=== PATIENT | male | born 1990 | race African-American/Black ===

== ENCOUNTER 2019-03-20 00:37 | Emergency (ER) | payer SELFPAY ==
[2019-03-20 01:18] LABS: Bacteria/HPF None Seen HPF (None Seen); Bilirubin Negative (Negative); Blood, Urine Negative (Negative); Clarity Clear (Clear); Glucose, Urine (Dipstick) Normal (Negative); Leukocyte 250 Leu/uL (Negative); Nitrite Negative (Negative); Protein, Urine (Dipstick) 30 mg/dL (Neg-Trace); Squamous Epithelial 0-3 HPF (0-3); Urobilinogen 3 mg/dL (Less than 2); WBC/HPF Greater than 50 HPF (0-3)
[2019-03-20] MEDS ORDERED: Azithromycin 250 MG TAB ONE (02:06)
[2019-03-20] MEDS ORDERED: cefTRIAXone\\ROCEPHIN 250 MG VIAL ONE (02:06)
[2019-03-20] MEDS ORDERED: Sterile Water 10 ML ONE (02:06)
== END 2019-03-20 02:15 | disposition home or self-care (01) ==
LOC: ERS 00:37
DX: R30.0 Dysuria (principal); R36.9 Urethral discharge, unspecified
CPT/HCPCS: 81003; 81015; 96372; 99283; J0696

== ENCOUNTER 2019-03-25 03:12 | Emergency (ER) | payer SELFPAY ==
[2019-03-25] MEDS ORDERED: Lidocaine 1% PF 5 ML VIAL ONE (04:06)
[2019-03-25] MEDS ORDERED: cefTRIAXone\\ROCEPHIN 250 MG VIAL ONE (04:06)
[2019-03-25] MEDS ORDERED: Azithromycin 250 MG TAB ONE (04:06)
[2019-03-25 04:12] LABS: Bacteria/HPF None Seen HPF (None Seen); Bilirubin Negative (Negative); Blood, Urine Negative (Negative); Clarity Clear (Clear); Glucose, Urine (Dipstick) Normal (Negative); Leukocyte 500 Leu/uL (Negative); Nitrite Negative (Negative); Protein, Urine (Dipstick) Negative (Neg-Trace); RBC/HPF 0-3 HPF (0-3); Squamous Epithelial None Seen HPF (0-3); Urobilinogen Normal mg/dL (Less than 2); WBC/HPF Greater than 50 HPF (0-3)
[2019-03-26 18:57] LABS: Chlam.trachomatis by PCR,Urine Not Detected (NotDetected)
== END 2019-03-25 04:35 | disposition home or self-care (01) ==
LOC: ERS 03:12
DX: R36.9 Urethral discharge, unspecified (principal)
CPT/HCPCS: 81003; 81015; 87491; 87591; 96374; J0696; J2001

== ENCOUNTER 2019-04-10 16:01 | Emergency (ER) | payer SELFPAY ==
[2019-04-10 17:00] LABS: Bacteria/HPF None Seen HPF (None Seen); Bilirubin Negative (Negative); Blood, Urine Negative (Negative); Clarity Clear (Clear); Glucose, Urine (Dipstick) Normal (Negative); Leukocyte 25 Leu/uL (Negative); Nitrite Negative (Negative); Protein, Urine (Dipstick) Negative (Neg-Trace); RBC/HPF 0-3 HPF (0-3); Squamous Epithelial 0-3 HPF (0-3); Urobilinogen Normal mg/dL (Less than 2)
[2019-04-11 21:40] LABS: Chlam.trachomatis by PCR,Urine Not Detected (NotDetected)
== END 2019-04-10 17:35 | disposition home or self-care (01) ==
LOC: ERS 16:01
DX: N34.2 Other urethritis (principal)
CPT/HCPCS: 81003; 81015; 87086; 87491; 87591; 99283

== ENCOUNTER 2021-06-28 23:58 | Emergency (ER) | payer SELFPAY ==
[2021-06-29 01:17] LABS: Bilirubin Negative (Negative); Blood, Urine Negative (Negative); Clarity Clear (Clear); Glucose, Urine (Dipstick) Normal (Negative); Ketone, Urine Negative (Negative); Leukocyte Negative Leu/uL (Negative); Nitrite Negative (Negative); Protein, Urine (Dipstick) 10 mg/dL (Neg-Trace); Specific Gravity, Urine 1.034 (1.002-1.036); Urobilinogen Normal mg/dL (Less than 2)
[2021-06-29] MEDS ORDERED: cefTRIAXone\\ROCEPHIN 500 MG VIAL ONE (01:47)
[2021-06-29] MEDS ORDERED: Lidocaine 1% PF 5 ML VIAL ONE (01:47)
[2021-07-02 02:56] LABS: Chlam.trachomatis by PCR,Urine Not Detected (NotDetected)
== END 2021-06-29 01:53 | disposition home or self-care (01) ==
LOC: ERS 23:58
DX: N34.2 Other urethritis (principal); F17.290 Nicotine dependence, other tobacco product, uncomplicated
CPT/HCPCS: 81003; 87491; 87591; 96372; 99283; J0696

== ENCOUNTER 2022-06-03 14:56 | Emergency (ER) | payer SELFPAY ==
[2022-06-03] MEDS ORDERED: Azithromycin 250 MG TAB ONE (16:28)
[2022-06-03] MEDS ORDERED: Lidocaine 1% PF 5 ML VIAL ONE (16:28)
[2022-06-03] MEDS ORDERED: metroNIDAZOLE 250 MG TAB ONE (16:28)
[2022-06-03] MEDS ORDERED: cefTRIAXone\\ROCEPHIN 500 MG VIAL ONE (16:28)
== END 2022-06-03 16:43 | disposition home or self-care (01) ==
LOC: ERS 14:56
DX: N34.2 Other urethritis (principal); A64 Unspecified sexually transmitted disease; F17.290 Nicotine dependence, other tobacco product, uncomplicated
CPT/HCPCS: 96372; 99283; J0696

== ENCOUNTER 2022-08-15 18:42 | Emergency (ER) | payer SELFPAY ==
[2022-08-15] MEDS ORDERED: Lidocaine 1% PF 5 ML VIAL ONE (19:43)
[2022-08-15] MEDS ORDERED: cefTRIAXone\\ROCEPHIN 500 MG VIAL ONE (19:43)
[2022-08-15] MEDS ORDERED: Azithromycin 250 MG TAB ONE (19:44)
== END 2022-08-15 20:28 | disposition home or self-care (01) ==
LOC: ERS 18:42
DX: N34.1 Nonspecific urethritis (principal); F17.290 Nicotine dependence, other tobacco product, uncomplicated
CPT/HCPCS: 96372; 99283; J0696

== ENCOUNTER 2023-03-26 00:19 | Emergency (ER) | payer SELFPAY ==
[2023-03-26] MEDS ORDERED: cefTRIAXone (ROCEPHIN) 500 MG VIAL ONE (03:01)
[2023-03-26] MEDS ORDERED: Lidocaine 1% MPF 2 ML VIAL ONE (03:01)
== END 2023-03-26 03:40 | disposition home or self-care (01) ==
LOC: ERS 00:19
DX: A64 Unspecified sexually transmitted disease (principal); F17.290 Nicotine dependence, other tobacco product, uncomplicated
CPT/HCPCS: 96372; 99283; J0696

== ENCOUNTER 2023-05-28 18:23 | Emergency (ER) | payer SELFPAY ==
[2023-05-28 19:10] LABS: Amphetamine Not Detected (NotDetected); Barbiturates Screen Not Detected (NotDetected); Benzodiazepine Screen Detected (NotDetected); Cocaine Metabolite Screen Not Detected (NotDetected); Methadone Not Detected (NotDetected); Methamphetamine Not Detected (NotDetected); Opiate Screen Not Detected (NotDetected); Oxycodone Screen Not Detected (NotDetected); Phencyclidine (PCP) Not Detected (NotDetected); THC/Cannabinoid Screen Not Detected (NotDetected); Tricyclic Screen Not Detected (NotDetected)
[2023-05-28 19:25] LABS: #Eosinphils 0.2 thou/uL (0.0-0.7); #Monocytes 0.6 thou/uL (0.11-0.59); #Neutrophils 6.6 thou/uL (1.40-6.50); %Basophils 0.3 % (0.0-1.0); %Eosinophils 1.7 % (0.0-10.0); %Lymphocytes 19.4 % (21.0-51.0); %Monocytes 6.7 % (0.0-10.0); %Neutrophils 70.9 % (42.0-75.0); Hematocrit 41.4 % (42.0-52.0); Hemoglobin 13.3 g/dL (14.0-18.0); Mean Corpuscular HGB CONC 32.1 g/dL (32.0-36.0); Mean Corpuscular Hemoglobin 27.8 pg (27.0-31.0); Mean Corpuscular Volume 86.6 fl (78.0-98.0); Mean Platelet Volume 9.9 fL (7.4-10.4); Platelet Count 267 10x3/uL (130-400); RBC Distribution Width 13.4 % (11.5-14.5); Red Blood Cell (RBC) Count 4.78 mill/uL (4.70-6.10); White Blood Cell (WBC) Count 9.3 10x3/uL (4.8-10.8)
[2023-05-28 20:41] LABS: Albumin 4.6 g/dL (3.5-5.0)
[2023-05-28 20:42] LABS: Chloride 103 mmol/L (98-107); Potassium 4.2 mmol/L (3.5-5.1); Sodium 139 mmol/L (136-145)
[2023-05-28 20:43] LABS: Calcium 9.3 mg/dL (7.8-10.44); Glucose 102 mg/dL (70-105)
[2023-05-28 20:44] LABS: Globulin 2.9 g/dL (2.4-3.5); Protein, Total 7.5 g/dL (6.0-8.3)
[2023-05-28 20:45] LABS: Anion Gap 15 mmol/L (10-20); Bilirubin, Total 0.4 mg/dL (0.2-1.2); Carbon Dioxide 25 mmol/L (22-29)
[2023-05-28 20:46] LABS: Alkaline Phosphatase 58 U/L (40-110)
[2023-05-28 20:47] LABS: Alcohol Less than 10.0 mg/dL (Less than 10); Calc. Creatinine Clearance 0 mL/min (70-130); Estimated GFR 104
[2023-05-28 20:48] LABS: BUN (Urea Nitrogen) 9 mg/dL (8.9-20.6)
[2023-05-28 20:49] LABS: ALT (SGPT) 12 U/L (8-55); AST (SGOT) 26 U/L (5-34); Salicylate Less than 8.0 mg/dL (15.0-30.0)
[2023-05-28 20:50] LABS: Acetaminophen Less than 10 mcg/mL (10.0-30.0)
[2023-05-28] MEDS ORDERED: Ondansetron ODT 4 MG TAB ONE (22:04)
[2023-05-29 09:55] LABS: Chlam.trachomatis by PCR,Urine DETECTED (NotDetected); GC N.gonorrhoeae PCR,UrineVOID Not Detected (NotDetected)
== END 2023-05-28 22:03 | disposition home or self-care (01) ==
LOC: ERS 18:23
DX: F19.10 Other psychoactive substance abuse, uncomplicated (principal); F17.290 Nicotine dependence, other tobacco product, uncomplicated
CPT/HCPCS: 70450; 72125; 80053; 80306; 80307; 85025; 87491; 87591; Q0162

== ENCOUNTER 2023-05-29 07:07 | Inpatient (IN) | payer SELFPAY, BC ==
[2023-05-29] MEDS ORDERED: NOREPINEPHRINE 8 MG/250 ML-D5W 250 ML ONE (07:11)
[2023-05-29] MEDS ORDERED: EPINEPHrine 1 MG/10 ML Abboject SYRINGE ONE (07:31)
[2023-05-29] MEDS ORDERED: EPINEPHrine 1 MG/ML VIAL ONE (07:33)
[2023-05-29 07:36] LABS: Actual Bicarbonate (HCO3a) 21.4 mEq/L (22-28); Analyzer IN Cardio ER; Carboxyhemoglobin (COHb) 0.3 gm% (0.0-3.0); Hematocrit-ABG 34 % (42.0-52.0); Hemoglobin (Hb) 11.7 g/dL (14.0-18.0); Potassium - ABG Lab 4.01 mmol/L (3.70-5.30)
[2023-05-29 07:40] LABS: Bilirubin Negative (Negative); Blood, Urine Large (Negative); Glucose, Urine (Dipstick) Negative (Negative); Ketone, Urine Negative (Negative); Leukocyte Negative (Negative); Nitrite Negative (Negative); Protein, Urine (Dipstick) 30 mg/dL (Neg-Trace); Specific Gravity, Urine 1.025 (1.005-1.030); Urobilinogen 0.2 mg/dL (Less than 2)
[2023-05-29 07:40] LABS: pH, Arterial 7.193 (7.35-7.45)
[2023-05-29 07:41] LABS: O2 Tension (PaO2), arterial 57.3 mmHg (80.0-100.0); Puncture Site Right Radial
[2023-05-29 07:41] LABS: Hematocrit 35.7 % (42.0-52.0); Hemoglobin 10.9 g/dL (14.0-18.0); Mean Corpuscular HGB CONC 30.5 g/dL (32.0-36.0); Mean Corpuscular Hemoglobin 27.5 pg (27.0-31.0); Mean Platelet Volume 9.7 fL (7.4-10.4); Platelet Count 174 10x3/uL (130-400); RBC Distribution Width 13.7 % (11.5-14.5); Red Blood Cell (RBC) Count 3.96 mill/uL (4.70-6.10); White Blood Cell (WBC) Count 7.8 10x3/uL (4.8-10.8)
[2023-05-29 07:44] LABS: Acetaminophen Less than 10 mcg/mL (10.0-30.0); Alcohol Less than 10.0 mg/dL (Less than 10); Delete Auto Diff?? YES; Manual Diff?? YES; Mean Corpuscular Volume 90.2 fl (78.0-98.0); Salicylate Less than 8.0 mg/dL (15.0-30.0)
[2023-05-29 07:45] LABS: Critical Call Chem-Lactate ERS.JAN AT 0742
[2023-05-29] MEDS ORDERED: Fentanyl CADD 100 ML IV SCH ×2 (07:45→12:15)
[2023-05-29 07:48] LABS: Clarity Clear (Clear)
[2023-05-29 07:50] LABS: Bacteria/HPF None Seen HPF (None Seen); CAUTI Indications for Culture Alt mental st,lethar; Squamous Epithelial 0-3 HPF (0-3); WBC/HPF 0-3 HPF (0-3)
[2023-05-29 07:51] LABS: Urine Culture Reflex No No
[2023-05-29 07:55] LABS: ALT (SGPT) 456 U/L (8-55); AST (SGOT) 361 U/L (5-34); Albumin 3.2 g/dL (3.5-5.0); Alkaline Phosphatase 51 U/L (40-110); Anion Gap 15 mmol/L (10-20); BUN (Urea Nitrogen) 14 mg/dL (8.9-20.6); Bilirubin, Total 0.5 mg/dL (0.2-1.2); Calc. Creatinine Clearance 0 mL/min (70-130); Calcium 7.7 mg/dL (7.8-10.44); Carbon Dioxide 23 mmol/L (22-29); Chloride 107 mmol/L (98-107); Estimated GFR 39; Globulin 1.5 g/dL (2.4-3.5); Glucose 89 mg/dL (70-105); Potassium 3.9 mmol/L (3.5-5.1); Protein, Total 4.7 g/dL (6.0-8.3); Sodium 141 mmol/L (136-145)
[2023-05-29 08:05] LABS: Band 26 % (5-11); CellaVision Operator ID lab.dlt; Hypochromia SLIGHT = 6-15 cells HPF (0-5); Lymphocytes 19 % (21-51); Monocytes 13 % (0-10); Neutrophil 42 % (42-75); Nucleated RBC (Manual Ct) 7 % (0); Ovalocytes SLIGHT = 2-5 cells HPF (0-1); Platelet Adequacy Comment Platelets Normal; Polychromasia SLIGHT = 2-3 cells HPF (0-2); Total Cell Count 105
[2023-05-29 08:13] LABS: Actual Bicarbonate (HCO3v) 22.3 mEq/L (22-28); Analyzer IN Cardio ER; Base Excess -8.4 mEq/L (-2.0 to +3.0); Calcium, Ionized (venous) 1.11 mmol/L (1.16-1.32); Chloride (VBG) 103 mmol/L (98-106); Hematocrit-VBG 36 % (42.0-52.0); Hemoglobin (Hb) 12.1 g/dL (13.2-17.3); Potassium (VBG) 4.05 mmol/L (3.70-5.30); Sodium 138 mmol/L (133-146)
[2023-05-29] MEDS ORDERED: Sodium Bicarb 50 MEQ/50 ML VIAL ONE (08:15)
[2023-05-29 08:18] LABS: pH (venous) 7.095 (7.32-7.43)
[2023-05-29] MEDS ORDERED: methylPREDNISolone Sod Succ/PF 125 MG/2 ML VIAL ONE (08:54)
[2023-05-29] MEDS ORDERED: metroNIDAZOLE 500 MG (100 mL) BAG ONE (08:54)
[2023-05-29] MEDS ORDERED: LevoFLOXacin 750 mg/D5W 150 ml Premix Bag ONE (08:55)
[2023-05-29] MEDS ORDERED: CALCIUM GLUC 1 GM (50 ML) BAG ONE (09:07)
[2023-05-29] MEDS ORDERED: Magnesium 2 GM/50 ML BAG (IN WATER) ONE (09:09)
[2023-05-29 09:24] LABS: Amphetamine Not Detected (NotDetected); Barbiturates Screen Not Detected (NotDetected); Benzodiazepine Screen Detected (NotDetected); Cocaine Metabolite Screen Not Detected (NotDetected); Methadone Not Detected (NotDetected); Methamphetamine Not Detected (NotDetected); Opiate Screen Not Detected (NotDetected); Oxycodone Screen Not Detected (NotDetected); Phencyclidine (PCP) Not Detected (NotDetected); THC/Cannabinoid Screen Detected (NotDetected); Tricyclic Screen Not Detected (NotDetected)
[2023-05-29] MEDS ORDERED: Ondansetron PF 4 MG/2 ML Vial IVP PRN (09:43)
[2023-05-29] MEDS ORDERED: DEXTROSE 5% IV SCH (10:00)
[2023-05-29] MEDS ORDERED: SODIUM BICARBONATE IV SCH (10:00)
[2023-05-29] MEDS ORDERED: Piperacillin/Tazobactam 3.375 GM in Sodium Chloride 0.9% 100 ML IVPB SCH ×2 (10:00→13:45)
[2023-05-29] MEDS ORDERED: Sodium Chloride 0.9% 1,000 ML IV SCH (10:00)
[2023-05-29] MEDS ORDERED: WATER IV SCH (10:00)
[2023-05-29] MEDS ORDERED: Vasopressin 20 UNITS in Sodium Chloride 0.9% 50 ML IV SCH (10:15)
[2023-05-29 10:37] LABS: Lactic Acid 9.7 mmol/L (0.5-2.2)
[2023-05-29] MEDS ORDERED: Sodium Bicarb 50 MEQ/50 ML Abboject 8.4% SYRINGE ONE (10:40)
[2023-05-29 10:53] LABS: HBCM Index 0.09 S/CO (0-0.79); HBSAg Index 0.24 S/CO (0-0.99); HIV (1/2) Antibody/Antigen Non-Reactive (NonReactive); HIV 1/2 INDEX 0.39 S/CO (<1.00); Hep A IgM AB Non-Reactive S/CO (NonReactive); Hep A IgM S/CO 0.16 S/CO (0-0.79); Hep B Surf Ag Non-Reactive S/CO (NonReactive); Hep C IgG Ab Non-Reactive S/CO (NonReactive); Hep C Index 0.09 S/CO (0-0.79); Hepatitis B Core IgM Abs Non-Reactive S/CO (NonReactive)
[2023-05-29] MEDS ORDERED: Sodium Bicarb 50 MEQ/50 ML Abboject 8.4% SYRINGE IVP SCH (11:00)
[2023-05-29] MEDS: Vasopressin 20 UNITS, Admixture Fee 1 EACH in Sodium Chloride 0.9% 50 ML IV PRN ×2 (11:09→16:39)
[2023-05-29] MEDS ORDERED: Ventilator Sedation Protocol 1 EACH FS SCH (11:15)
[2023-05-29] MEDS ORDERED: Electrolyte Replacement Protocol 1 EACH FS PRN (11:15)
[2023-05-29] MEDS ORDERED: Lorazepam 2 MG/ML VIAL SLOW IVP PRN ×2 (11:18→12:15)
[2023-05-29] MEDS: Vancomycin 1.5 GM in Sodium Chloride 0.9% 250 ML 300 ML IVPB SCH ×2 (11:39→23:23)
[2023-05-29] MEDS ORDERED: methylPREDNISolone Sod Succ/PF 125 MG/2 ML VIAL IVP SCH (12:00)
[2023-05-29] MEDS ORDERED: Propofol BOLUS 1,000 MG/100 ML VIAL IV PRN (12:15)
[2023-05-29] MEDS ORDERED: Fentanyl BOLUS 250 ML IVPB PRN (12:15)
[2023-05-29] MEDS ORDERED: DISCONTINUE PREVIOUS NARCOTIC PAIN MEDICATIONS AND BENZODIAZEPINES FS SCH (12:15)
[2023-05-29] MEDS ORDERED: Morphine 2 MG/ML VIAL SLOW IVP PRN (12:15)
[2023-05-29 13:19] LABS: Base Excess -12.9 mEq/L (-2.0 to +3.0); Chloride (VBG) 100 mmol/L (98-106); Hematocrit-VBG 40 % (42.0-52.0); Hemoglobin (Hb) 13.7 g/dL (13.2-17.3); Potassium (VBG) 4.82 mmol/L (3.70-5.30); Sodium 137 mmol/L (133-146)
[2023-05-29 13:21] LABS: Hemoglobin 12.7 g/dL (14.0-18.0); Mean Corpuscular Hemoglobin 27.9 pg (27.0-31.0); Mean Corpuscular Volume 89.9 fl (78.0-98.0); Mean Platelet Volume 9.7 fL (7.4-10.4); RBC Distribution Width 13.8 % (11.5-14.5); Red Blood Cell (RBC) Count 4.56 mill/uL (4.70-6.10); White Blood Cell (WBC) Count 12.4 10x3/uL (4.8-10.8)
[2023-05-29 13:21] LABS: Actual Bicarbonate (HCO3v) 14.7 mEq/L (22-28); pH (venous) 7.188 (7.32-7.43)
[2023-05-29] MEDS: methylPREDNISolone Sod Succ/PF 125 MG/2 ML VIAL IVP SCH ×2 (13:28→18:41)
[2023-05-29 13:29] LABS: Delete Auto Diff?? YES; Manual Diff?? YES; Platelet Count 132 10x3/uL (130-400)
[2023-05-29 13:58] LABS: Band 30 % (5-11); CellaVision Operator ID LAB.MJL; Dohle Bodies SLIGHT; Large Platelets 2.8 % (0-5); Lymphocytes 14 % (21-51); Metamyelocyte 14 % (0-0); Monocytes 2 % (0-10); Myelocyte 4 % (0-0); Neutrophil 36 % (42-75); Nucleated RBC (Manual Ct) 2 % (0); Ovalocytes SLIGHT = 2-5 cells HPF (0-1); Platelet Adequacy Comment Platelets Normal; Polychromasia SLIGHT = 2-3 cells HPF (0-2); Total Cell Count 106; Vacuoles SLIGHT
[2023-05-29] MEDS ORDERED: Iopamidol-370 76% 500 ML MDV (1 ML CHARGE) ONE (13:59)
[2023-05-29] MEDS: Piperacillin/Tazobactam 3.375 GM in Sodium Chloride 0.9% 100 ML IVPB SCH ×2 (15:00→22:00)
[2023-05-29] MEDS: NOREPINEPHRINE 8 MG/250 ML-D5W 250 ML IVPB SCH ×2 (15:27→22:02)
[2023-05-29] MEDS: Budesonide 0.5 MG/2 ML NEB INH SCH (18:21)
[2023-05-29 18:28] LABS: ALT (SGPT) 1551 U/L (8-55); AST (SGOT) 1778 U/L (5-34); Albumin 3.6 g/dL (3.5-5.0); Alkaline Phosphatase 50 U/L (40-110); Anion Gap 25 mmol/L (10-20); BUN (Urea Nitrogen) 18 mg/dL (8.9-20.6); CK (CPK) 2915 U/L (30-200); Calc. Creatinine Clearance 74 mL/min (70-130); Calcium 7.7 mg/dL (7.8-10.44); Carbon Dioxide 13 mmol/L (22-29); Chloride 103 mmol/L (98-107); Estimated GFR 42; Globulin 2.1 g/dL (2.4-3.5); Glucose 250 mg/dL (70-105); Potassium 5.8 mmol/L (3.5-5.1); Protein, Total 5.7 g/dL (6.0-8.3); Sodium 135 mmol/L (136-145)
[2023-05-29] MEDS ORDERED: HumaLOG 300 UNITS/3 ML VIAL SC PRN (19:07)
[2023-05-29] MEDS ORDERED: Glucagon 1 MG/ML KIT IM PRN (19:07)
[2023-05-29] MEDS ORDERED: Dextrose 50% Abboject 50 ML SYRINGE SLOW IVP PRN (19:07)
[2023-05-29] MEDS ORDERED: Dextrose 5% in Water 1,000 ML IV PRN (19:07)
[2023-05-29] MEDS: DOBUTamine 500 mg/250 ml 500 MG in Premix 1 BAG IVPB SCH (20:46)
[2023-05-29] MEDS ORDERED: Famotidine/PF 20 mg/2ml Vial SLOW IVP SCH (21:00)
[2023-05-29] MEDS ORDERED: Furosemide 40 MG (4 mL) VIAL ONE (22:13)
[2023-05-29] MEDS ORDERED: Furosemide 40 MG (4 mL) VIAL SLOW IVP SCH (22:30)
[2023-05-29] MEDS: Propofol 1,000 MG/100 ML VIAL IV PRN (23:23)
[2023-05-29] MEDS: methylPREDNISolone Sod Succ 40 MG VIAL IVP SCH (23:34)
[2023-05-30] MEDS: Piperacillin/Tazobactam 3.375 GM in Sodium Chloride 0.9% 100 ML IVPB SCH ×3 (05:09→22:07)
[2023-05-30] MEDS: methylPREDNISolone Sod Succ 40 MG VIAL IVP SCH ×3 (05:09→18:20)
[2023-05-30 05:41] LABS: Hematocrit 39.2 % (42.0-52.0); Hemoglobin 13.3 g/dL (14.0-18.0); Mean Corpuscular HGB CONC 33.9 g/dL (32.0-36.0); Mean Corpuscular Hemoglobin 27.6 pg (27.0-31.0); Mean Platelet Volume 10.8 fL (7.4-10.4); Platelet Count 156 10x3/uL (130-400); RBC Distribution Width 13.3 % (11.5-14.5); Red Blood Cell (RBC) Count 4.82 mill/uL (4.70-6.10)
[2023-05-30 05:48] LABS: Delete Auto Diff?? YES; Manual Diff?? YES; Mean Corpuscular Volume 81.3 fl (78.0-98.0)
[2023-05-30 06:15] LABS: ALT (SGPT) 2768 U/L (8-55); AST (SGOT) 2979 U/L (5-34); Albumin 3.8 g/dL (3.5-5.0); Alkaline Phosphatase 47 U/L (40-110); Anion Gap 18 mmol/L (10-20); BUN (Urea Nitrogen) 25 mg/dL (8.9-20.6); Bilirubin, Total 1.6 mg/dL (0.2-1.2); CK (CPK) 3948 U/L (30-200); Calc. Creatinine Clearance 57 mL/min (70-130); Calcium 8.8 mg/dL (7.8-10.44); Carbon Dioxide 24 mmol/L (22-29); Chloride 101 mmol/L (98-107); Estimated GFR 43; Globulin 2.2 g/dL (2.4-3.5); Glucose 96 mg/dL (70-105); Potassium 4.1 mmol/L (3.5-5.1); Sodium 139 mmol/L (136-145)
[2023-05-30 06:33] LABS: Band 46 % (5-11); CellaVision Operator ID LAB.CLH1; Hypochromia SLIGHT = 6-15 cells HPF (0-5); Lymphocytes 7 % (21-51); Macrocytosis SLIGHT = 6-15 cells HPF (0-5); Metamyelocyte 1 % (0-0); Monocytes 1 % (0-10); Neutrophil 45 % (42-75); Platelet Adequacy Comment Platelets Normal; Total Cell Count 100
[2023-05-30] MEDS: Budesonide 0.5 MG/2 ML NEB INH SCH ×2 (06:37→17:52)
[2023-05-30 08:04] LABS: Lactic Acid 4.4 mmol/L (0.5-2.2)
[2023-05-30] MEDS: hydrALAZINE 25 MG TAB PER TUBE SCH ×3 (08:59→22:09)
[2023-05-30] MEDS: Pantoprazole 40 MG VIAL IVP SCH (09:00)
[2023-05-30] MEDS: Isosorbide Dinitrate 5 MG TAB PER TUBE SCH ×3 (09:19→22:08)
[2023-05-30 09:39] LABS: Chlam.trachomatis by PCR,Urine DETECTED (NotDetected); GC N.gonorrhoeae PCR,UrineVOID Not Detected (NotDetected)
[2023-05-30] MEDS: Propofol 1,000 MG/100 ML VIAL IV PRN (09:47)
[2023-05-30] MEDS: DOBUTamine 500 mg/250 ml 500 MG in Premix 1 BAG IVPB SCH (10:24)
[2023-05-30] MEDS: Vancomycin 1.5 GM in Sodium Chloride 0.9% 250 ML 300 ML IVPB SCH (10:30)
[2023-05-30] MEDS ORDERED: Furosemide 40 MG (4 mL) VIAL SLOW IVP SCH (12:00)
[2023-05-30 12:03] LABS: Actual Bicarbonate (HCO3a) 23.4 mEq/L (22-28); Base Excess (BEa) 2.1 mEq/L (-2.0 to +3.0); CO2 Tension 27.6 mmHg (35.0-45.0); Calcium, Ionized (arterial) 1.06 mmol/L (1.12-1.30); Carboxyhemoglobin (COHb) 0.3 gm% (0.0-3.0); Hematocrit-ABG 40 % (42.0-52.0); Hemoglobin (Hb) 13.6 g/dL (14.0-18.0); O2 Tension (PaO2), arterial 153.3 mmHg (80.0-100.0); Potassium - ABG Lab 4.11 mmol/L (3.70-5.30); pH, Arterial 7.547 (7.35-7.45)
[2023-05-30 12:06] LABS: Puncture Site LRA
[2023-05-30 12:15] LABS: Lactic Acid 3.9 mmol/L (0.5-2.2)
[2023-05-30 12:48] LABS: Syphilis Antibody Nonreactive (Nonreactive); Syphilis Antibody Index 0.03 S/CO (<1.00 Non-Reactive)
[2023-05-30 22:23] LABS: Vancomycin, Trough 18.2 ug/mL
[2023-05-31] MEDS: Vancomycin 1.5 GM in Sodium Chloride 0.9% 250 ML 300 ML IVPB SCH ×3 (00:49→23:47)
[2023-05-31] MEDS: methylPREDNISolone Sod Succ 40 MG VIAL IVP SCH ×5 (00:50→23:47)
[2023-05-31 04:43] LABS: Hematocrit 34.9 % (42.0-52.0); Hemoglobin 11.8 g/dL (14.0-18.0); Mean Corpuscular HGB CONC 33.8 g/dL (32.0-36.0); Mean Corpuscular Hemoglobin 27.9 pg (27.0-31.0); Mean Corpuscular Volume 82.5 fl (78.0-98.0); Mean Platelet Volume 10.7 fL (7.4-10.4); Platelet Count 152 10x3/uL (130-400); RBC Distribution Width 13.4 % (11.5-14.5); Red Blood Cell (RBC) Count 4.23 mill/uL (4.70-6.10); White Blood Cell (WBC) Count 19.4 10x3/uL (4.8-10.8)
[2023-05-31 04:49] LABS: Delete Auto Diff?? YES; Manual Diff?? YES
[2023-05-31] MEDS: HumaLOG 300 UNITS/3 ML VIAL SC PRN (04:53)
[2023-05-31] MEDS: Propofol 1,000 MG/100 ML VIAL IV PRN ×2 (04:54→15:14)
[2023-05-31 05:08] LABS: ALT (SGPT) 3432 U/L (8-55); AST (SGOT) 2315 U/L (5-34); Albumin 3.6 g/dL (3.5-5.0); Alkaline Phosphatase 52 U/L (40-110); Anion Gap 10 mmol/L (10-20); BUN (Urea Nitrogen) 30 mg/dL (8.9-20.6); Bilirubin, Total 1.7 mg/dL (0.2-1.2); Calc. Creatinine Clearance 75 mL/min (70-130); Calcium 8.4 mg/dL (7.8-10.44); Carbon Dioxide 28 mmol/L (22-29); Chloride 105 mmol/L (98-107); Estimated GFR 60; Globulin 2.2 g/dL (2.4-3.5); Glucose 153 mg/dL (70-105); Protein, Total 5.8 g/dL (6.0-8.3); Sodium 139 mmol/L (136-145)
[2023-05-31 05:18] LABS: Band 13 % (5-11); CellaVision Operator ID lab.sh2; Large Platelets 1.9 % (0-5); Lymphocytes 1 % (21-51); Macrocytosis SLIGHT = 6-15 cells HPF (0-5); Monocytes 3 % (0-10); Neutrophil 83 % (42-75); Ovalocytes SLIGHT = 2-5 cells HPF (0-1); Platelet Adequacy Comment Platelets Normal; Smudge Cells 5.8 %; Total Cell Count 104; Vacuoles SLIGHT
[2023-05-31] MEDS: Piperacillin/Tazobactam 3.375 GM in Sodium Chloride 0.9% 100 ML IVPB SCH ×3 (06:46→22:04)
[2023-05-31] MEDS: Budesonide 0.5 MG/2 ML NEB INH SCH ×2 (06:57→19:11)
[2023-05-31] MEDS ORDERED: Doxycycline 100 MG in Sodium Chloride 0.9% 100 ML IVPB SCH (08:15)
[2023-05-31] MEDS: Pantoprazole 40 MG VIAL IVP SCH (09:15)
[2023-05-31] MEDS: hydrALAZINE 25 MG TAB PER TUBE SCH ×3 (09:15→21:58)
[2023-05-31] MEDS: Isosorbide Dinitrate 5 MG TAB PER TUBE SCH ×3 (09:15→21:58)
[2023-05-31] MEDS: Furosemide 40 MG (4 mL) VIAL SLOW IVP SCH (09:15)
[2023-05-31] MEDS ORDERED: Scopolamine 1 mg/72 hour Patch TOP PRN (15:12)
[2023-05-31] MEDS: Doxycycline 100 MG in Sodium Chloride 0.9% 100 ML IVPB SCH (20:40)
[2023-06-01 04:15] LABS: Hematocrit 35.8 % (42.0-52.0); Hemoglobin 11.6 g/dL (14.0-18.0); Mean Corpuscular HGB CONC 32.4 g/dL (32.0-36.0); Mean Corpuscular Hemoglobin 27.8 pg (27.0-31.0); Mean Platelet Volume 10.8 fL (7.4-10.4); Platelet Count 137 10x3/uL (130-400); RBC Distribution Width 13.6 % (11.5-14.5); Red Blood Cell (RBC) Count 4.18 mill/uL (4.70-6.10); White Blood Cell (WBC) Count 23.9 10x3/uL (4.8-10.8)
[2023-06-01 04:24] LABS: Delete Auto Diff?? YES; Manual Diff?? YES; Mean Corpuscular Volume 85.6 fl (78.0-98.0)
[2023-06-01 04:40] LABS: ALT (SGPT) 2842 U/L (8-55); AST (SGOT) 837 U/L (5-34); Albumin 3.7 g/dL (3.5-5.0); Alkaline Phosphatase 62 U/L (40-110); Anion Gap 11 mmol/L (10-20); BUN (Urea Nitrogen) 30 mg/dL (8.9-20.6); Bilirubin, Total 1.6 mg/dL (0.2-1.2); Calc. Creatinine Clearance 89 mL/min (70-130); Calcium 8.2 mg/dL (7.8-10.44); Carbon Dioxide 31 mmol/L (22-29); Chloride 105 mmol/L (98-107); Estimated GFR 73; Globulin 2.2 g/dL (2.4-3.5); Glucose 150 mg/dL (70-105); Potassium 4.1 mmol/L (3.5-5.1); Protein, Total 5.9 g/dL (6.0-8.3); Sodium 143 mmol/L (136-145)
[2023-06-01 04:50] LABS: Band 19 % (5-11); CellaVision Operator ID LAB.CLH1; Lymphocytes 3 % (21-51); Monocytes 3 % (0-10); Neutrophil 75 % (42-75); Platelet Adequacy Comment Platelets Normal; Polychromasia SLIGHT = 2-3 cells HPF (0-2); Total Cell Count 100
[2023-06-01] MEDS: Piperacillin/Tazobactam 3.375 GM in Sodium Chloride 0.9% 100 ML IVPB SCH ×3 (05:44→21:43)
[2023-06-01] MEDS: Propofol 1,000 MG/100 ML VIAL IV PRN (05:44)
[2023-06-01] MEDS: methylPREDNISolone Sod Succ 40 MG VIAL IVP SCH ×3 (05:44→18:18)
[2023-06-01] MEDS: Budesonide 0.5 MG/2 ML NEB INH SCH ×2 (07:31→18:24)
[2023-06-01 07:39] LABS: Actual Bicarbonate (HCO3a) 26.2 mEq/L (22-28); Base Excess (BEa) 2.2 mEq/L (-2.0 to +3.0); CO2 Tension 38.7 mmHg (35.0-45.0); Calcium, Ionized (arterial) 1.12 mmol/L (1.12-1.30); Carboxyhemoglobin (COHb) 0.1 gm% (0.0-3.0); Hematocrit-ABG 36 % (42.0-52.0); Hemoglobin (Hb) 12.2 g/dL (14.0-18.0); O2 Tension (PaO2), arterial 147.7 mmHg (80.0-100.0); Potassium - ABG Lab 4.13 mmol/L (3.70-5.30); pH, Arterial 7.449 (7.35-7.45)
[2023-06-01 07:40] LABS: ALV-art Gradient 53.475 mmHg (0-20); Puncture Site RRA
[2023-06-01] MEDS: Spironolactone 25 MG TAB PO SCH (08:12)
[2023-06-01] MEDS: hydrALAZINE 25 MG TAB PER TUBE SCH ×3 (08:12→21:47)
[2023-06-01] MEDS: Isosorbide Dinitrate 5 MG TAB PER TUBE SCH ×3 (08:13→21:47)
[2023-06-01] MEDS: Doxycycline 100 MG in Sodium Chloride 0.9% 100 ML IVPB SCH ×2 (08:24→19:58)
[2023-06-01] MEDS: Pantoprazole 40 MG VIAL IVP SCH (08:28)
[2023-06-01] MEDS: Furosemide 40 MG (4 mL) VIAL SLOW IVP SCH (08:28)
[2023-06-01] MEDS: HumaLOG 300 UNITS/3 ML VIAL SC PRN (16:46)
[2023-06-02] MEDS: methylPREDNISolone Sod Succ 40 MG VIAL IVP SCH ×5 (00:13→23:23)
[2023-06-02 05:09] LABS: Hematocrit 35.6 % (42.0-52.0); Hemoglobin 11.6 g/dL (14.0-18.0); Mean Corpuscular HGB CONC 32.6 g/dL (32.0-36.0); Mean Corpuscular Volume 85.8 fl (78.0-98.0); Mean Platelet Volume 11.3 fL (7.4-10.4); Platelet Count 139 10x3/uL (130-400); RBC Distribution Width 13.3 % (11.5-14.5); Red Blood Cell (RBC) Count 4.15 mill/uL (4.70-6.10); White Blood Cell (WBC) Count 25.7 10x3/uL (4.8-10.8)
[2023-06-02 05:25] LABS: ALT (SGPT) 1917 U/L (8-55); AST (SGOT) 260 U/L (5-34); Albumin 3.7 g/dL (3.5-5.0); Alkaline Phosphatase 76 U/L (40-110); Anion Gap 12 mmol/L (10-20); BUN (Urea Nitrogen) 33 mg/dL (8.9-20.6); Bilirubin, Total 1.7 mg/dL (0.2-1.2); Calc. Creatinine Clearance 103 mL/min (70-130); Calcium 8.2 mg/dL (7.8-10.44); Carbon Dioxide 30 mmol/L (22-29); Chloride 106 mmol/L (98-107); Estimated GFR 90; Globulin 2.2 g/dL (2.4-3.5); Glucose 178 mg/dL (70-105); Potassium 3.8 mmol/L (3.5-5.1); Protein, Total 5.9 g/dL (6.0-8.3); Sodium 144 mmol/L (136-145)
[2023-06-02 05:26] LABS: Delete Auto Diff?? YES; Manual Diff?? YES
[2023-06-02] MEDS: Propofol 1,000 MG/100 ML VIAL IV PRN (05:38)
[2023-06-02] MEDS: Piperacillin/Tazobactam 3.375 GM in Sodium Chloride 0.9% 100 ML IVPB SCH ×3 (05:40→21:42)
[2023-06-02 06:04] LABS: Band 3 % (5-11); CellaVision Operator ID lab.sh2; Lymphocytes 1 % (21-51); Monocytes 5 % (0-10); Neutrophil 91 % (42-75); Ovalocytes SLIGHT = 2-5 cells HPF (0-1); Platelet Adequacy Comment Platelets Decreased; Polychromasia SLIGHT = 2-3 cells HPF (0-2); Total Cell Count 101
[2023-06-02] MEDS: HumaLOG 300 UNITS/3 ML VIAL SC PRN (06:05)
[2023-06-02] MEDS: Budesonide 0.5 MG/2 ML NEB INH SCH (06:51)
[2023-06-02 06:55] LABS: Actual Bicarbonate (HCO3a) 27.3 mEq/L (22-28); Base Excess (BEa) 2.9 mEq/L (-2.0 to +3.0); CO2 Tension 41.2 mmHg (35.0-45.0); Calcium, Ionized (arterial) 1.15 mmol/L (1.12-1.30); Carboxyhemoglobin (COHb) 0.2 gm% (0.0-3.0); Hematocrit-ABG 38 % (42.0-52.0); Hemoglobin (Hb) 12.8 g/dL (14.0-18.0); O2 Tension (PaO2), arterial 149.2 mmHg (80.0-100.0); Potassium - ABG Lab 3.81 mmol/L (3.70-5.30); pH, Arterial 7.439 (7.35-7.45)
[2023-06-02 06:56] LABS: Puncture Site RRA
[2023-06-02] MEDS: Spironolactone 25 MG TAB PO SCH (08:39)
[2023-06-02] MEDS: Doxycycline 100 MG in Sodium Chloride 0.9% 100 ML IVPB SCH (08:39)
[2023-06-02] MEDS: hydrALAZINE 25 MG TAB PER TUBE SCH ×3 (08:39→21:45)
[2023-06-02] MEDS: Isosorbide Dinitrate 20 MG TAB PER TUBE SCH ×3 (08:39→21:46)
[2023-06-02] MEDS: Furosemide 40 MG (4 mL) VIAL SLOW IVP SCH (08:39)
[2023-06-02] MEDS ORDERED: DC Sedation Protocol FS ONE (10:39)
[2023-06-02] MEDS: Pantoprazole 40 MG VIAL IVP SCH (12:23)
[2023-06-03] MEDS: Piperacillin/Tazobactam 3.375 GM in Sodium Chloride 0.9% 100 ML IVPB SCH (05:05)
[2023-06-03] MEDS: methylPREDNISolone Sod Succ 40 MG VIAL IVP SCH (05:16)
[2023-06-03 06:05] LABS: #Basophils 0.1 thou/uL (0.0-0.2); #Neutrophils 21.4 thou/uL (1.40-6.50); %Basophils 0.4 % (0.0-1.0); %Lymphocytes 7.7 % (21.0-51.0); %Monocytes 7.8 % (0.0-10.0); %Neutrophils 81.3 % (42.0-75.0); Hematocrit 38.9 % (42.0-52.0); Hemoglobin 12.8 g/dL (14.0-18.0); Mean Corpuscular HGB CONC 32.9 g/dL (32.0-36.0); Mean Corpuscular Hemoglobin 27.9 pg (27.0-31.0); Mean Corpuscular Volume 84.7 fl (78.0-98.0); Mean Platelet Volume 11.2 fL (7.4-10.4); Platelet Count 142 10x3/uL (130-400); RBC Distribution Width 13.2 % (11.5-14.5); Red Blood Cell (RBC) Count 4.59 mill/uL (4.70-6.10); White Blood Cell (WBC) Count 26.3 10x3/uL (4.8-10.8)
[2023-06-03 06:30] LABS: ALT (SGPT) 1423 U/L (8-55); AST (SGOT) 136 U/L (5-34); Albumin 4.2 g/dL (3.5-5.0); Alkaline Phosphatase 65 U/L (40-110); Anion Gap 15 mmol/L (10-20); BUN (Urea Nitrogen) 35 mg/dL (8.9-20.6); Bilirubin, Total 1.9 mg/dL (0.2-1.2); Calc. Creatinine Clearance 95 mL/min (70-130); Calcium 8.7 mg/dL (7.8-10.44); Carbon Dioxide 28 mmol/L (22-29); Chloride 106 mmol/L (98-107); Estimated GFR 92; Globulin 2.7 g/dL (2.4-3.5); Glucose 123 mg/dL (70-105); Potassium 3.8 mmol/L (3.5-5.1); Protein, Total 6.9 g/dL (6.0-8.3); Sodium 145 mmol/L (136-145)
[2023-06-03] MEDS: hydrALAZINE 25 MG TAB PER TUBE SCH ×3 (09:12→20:10)
[2023-06-03] MEDS: Isosorbide Dinitrate 20 MG TAB PER TUBE SCH ×3 (09:12→20:12)
[2023-06-03] MEDS: Pantoprazole 40 MG VIAL IVP SCH (18:17)
[2023-06-03] MEDS: Doxycycline 100 MG CAP PO SCH (20:10)
[2023-06-03] MEDS: Enoxaparin 40 MG (0.4 mL) SYRINGE SC SCH (20:11)
[2023-06-03] MEDS: Senokot S 8.6-50 MG TAB PO SCH (20:12)
[2023-06-04] MEDS ORDERED: Lorazepam 2 MG/ML VIAL SLOW IVP SCH (04:00)
[2023-06-04 05:28] LABS: #Eosinphils 0.2 thou/uL (0.0-0.7); #Monocytes 1.6 thou/uL (0.11-0.59); #Neutrophils 10.8 thou/uL (1.40-6.50); %Basophils 0.1 % (0.0-1.0); %Lymphocytes 20.5 % (21.0-51.0); %Monocytes 9.5 % (0.0-10.0); %Neutrophils 64.9 % (42.0-75.0); Hematocrit 36.5 % (42.0-52.0); Hemoglobin 11.8 g/dL (14.0-18.0); Mean Corpuscular HGB CONC 32.3 g/dL (32.0-36.0); Mean Corpuscular Hemoglobin 27.6 pg (27.0-31.0); Mean Corpuscular Volume 85.3 fl (78.0-98.0); RBC Distribution Width 13.1 % (11.5-14.5); Red Blood Cell (RBC) Count 4.28 mill/uL (4.70-6.10); White Blood Cell (WBC) Count 16.6 10x3/uL (4.8-10.8)
[2023-06-04 05:56] LABS: ALT (SGPT) 920 U/L (8-55); AST (SGOT) 89 U/L (5-34); Albumin 3.6 g/dL (3.5-5.0); Alkaline Phosphatase 55 U/L (40-110); Anion Gap 10 mmol/L (10-20); BUN (Urea Nitrogen) 25 mg/dL (8.9-20.6); Bilirubin, Total 1.5 mg/dL (0.2-1.2); Calc. Creatinine Clearance 121 mL/min (70-130); Calcium 8.5 mg/dL (7.8-10.44); Carbon Dioxide 29 mmol/L (22-29); Chloride 105 mmol/L (98-107); Estimated GFR 119; Globulin 2.6 g/dL (2.4-3.5); Glucose 89 mg/dL (70-105); Potassium 3.1 mmol/L (3.5-5.1); Protein, Total 6.2 g/dL (6.0-8.3); Sodium 141 mmol/L (136-145)
[2023-06-04 06:14] LABS: Platelet Count 138 10x3/uL (130-400)
[2023-06-04] MEDS ORDERED: Potassium Chloride 20 MEQ TAB PO SCH (08:00)
[2023-06-04] MEDS: Doxycycline 100 MG CAP PO SCH ×2 (08:11→20:09)
[2023-06-04] MEDS: Isosorbide Dinitrate 20 MG TAB PER TUBE SCH (08:11)
[2023-06-04] MEDS: Polyethylene Glycol 3350 17 GM Packet PO SCH (08:11)
[2023-06-04] MEDS: hydrALAZINE 25 MG TAB PER TUBE SCH (08:11)
[2023-06-04] MEDS: Senokot S 8.6-50 MG TAB PO SCH ×2 (08:11→20:09)
[2023-06-04] MEDS: Sodium Chloride 0.45% 1,000 ML IV SCH (13:07)
[2023-06-04] MEDS: hydrALAZINE 20 MG/ML VIAL SLOW IVP SCH ×2 (15:40→20:09)
[2023-06-04] MEDS: Enoxaparin 40 MG (0.4 mL) SYRINGE SC SCH (20:09)
[2023-06-05 05:30] LABS: #Eosinphils 0.2 thou/uL (0.0-0.7); #Monocytes 1.3 thou/uL (0.11-0.59); #Neutrophils 7.4 thou/uL (1.40-6.50); %Basophils 0.3 % (0.0-1.0); %Eosinophils 1.6 % (0.0-10.0); %Monocytes 11.5 % (0.0-10.0); %Neutrophils 64.1 % (42.0-75.0); Hemoglobin 12.9 g/dL (14.0-18.0); Mean Corpuscular HGB CONC 33.1 g/dL (32.0-36.0); Mean Corpuscular Hemoglobin 27.2 pg (27.0-31.0); Mean Platelet Volume 11.6 fL (7.4-10.4); Platelet Count 174 10x3/uL (130-400); RBC Distribution Width 12.7 % (11.5-14.5); Red Blood Cell (RBC) Count 4.74 mill/uL (4.70-6.10); White Blood Cell (WBC) Count 11.6 10x3/uL (4.8-10.8)
[2023-06-05 05:42] LABS: Mean Corpuscular Volume 82.3 fl (78.0-98.0)
[2023-06-05 06:05] LABS: ALT (SGPT) 669 U/L (8-55); AST (SGOT) 79 U/L (5-34); Albumin 3.9 g/dL (3.5-5.0); Alkaline Phosphatase 57 U/L (40-110); Anion Gap 16 mmol/L (10-20); BUN (Urea Nitrogen) 16 mg/dL (8.9-20.6); Bilirubin, Total 1.7 mg/dL (0.2-1.2); Calc. Creatinine Clearance 130 mL/min (70-130); Calcium 8.7 mg/dL (7.8-10.44); Carbon Dioxide 22 mmol/L (22-29); Chloride 104 mmol/L (98-107); Estimated GFR 121; Globulin 2.7 g/dL (2.4-3.5); Glucose 86 mg/dL (70-105); Potassium 3.7 mmol/L (3.5-5.1); Protein, Total 6.6 g/dL (6.0-8.3); Sodium 138 mmol/L (136-145)
[2023-06-05] MEDS: Doxycycline 100 MG CAP PO SCH ×2 (10:10→21:48)
[2023-06-05] MEDS: hydrALAZINE 20 MG/ML VIAL SLOW IVP SCH ×3 (10:10→21:48)
[2023-06-05] MEDS: Senokot S 8.6-50 MG TAB PO SCH ×2 (10:10→21:48)
[2023-06-05] MEDS: Polyethylene Glycol 3350 17 GM Packet PO SCH (10:10)
[2023-06-05] MEDS: Sodium Chloride 0.45% 1,000 ML IV SCH ×2 (10:11→14:05)
[2023-06-05] MEDS: Pantoprazole 40 MG VIAL IVP SCH (10:11)
[2023-06-05] MEDS: Enoxaparin 40 MG (0.4 mL) SYRINGE SC SCH (21:48)
[2023-06-05] MEDS: Lorazepam 2 MG/ML VIAL SLOW IVP PRN (21:56)
[2023-06-06] MEDS: Sodium Chloride 0.45% 1,000 ML IV SCH ×2 (02:28→16:07)
[2023-06-06 06:39] LABS: #Eosinphils 0.1 thou/uL (0.0-0.7); %Basophils 0.1 % (0.0-1.0); %Lymphocytes 17.1 % (21.0-51.0); %Monocytes 9.1 % (0.0-10.0); %Neutrophils 71.6 % (42.0-75.0); Hematocrit 40.2 % (42.0-52.0); Hemoglobin 13.2 g/dL (14.0-18.0); Mean Corpuscular HGB CONC 32.8 g/dL (32.0-36.0); Mean Corpuscular Hemoglobin 27.7 pg (27.0-31.0); Mean Corpuscular Volume 84.5 fl (78.0-98.0); Mean Platelet Volume 10.2 fL (7.4-10.4); Platelet Count 216 10x3/uL (130-400); RBC Distribution Width 13.1 % (11.5-14.5); Red Blood Cell (RBC) Count 4.76 mill/uL (4.70-6.10); White Blood Cell (WBC) Count 11.2 10x3/uL (4.8-10.8)
[2023-06-06 07:06] LABS: ALT (SGPT) 479 U/L (8-55); AST (SGOT) 88 U/L (5-34); Albumin 3.8 g/dL (3.5-5.0); Alkaline Phosphatase 53 U/L (40-110); Anion Gap 13 mmol/L (10-20); BUN (Urea Nitrogen) 14 mg/dL (8.9-20.6); Bilirubin, Total 1.5 mg/dL (0.2-1.2); Calc. Creatinine Clearance 133 mL/min (70-130); Calcium 8.9 mg/dL (7.8-10.44); Carbon Dioxide 22 mmol/L (22-29); Chloride 102 mmol/L (98-107); Estimated GFR 122; Glucose 84 mg/dL (70-105); Potassium 4.1 mmol/L (3.5-5.1); Protein, Total 6.8 g/dL (6.0-8.3); Sodium 133 mmol/L (136-145)
[2023-06-06] MEDS: Doxycycline 100 MG CAP PO SCH ×2 (10:01→21:19)
[2023-06-06] MEDS: hydrALAZINE 20 MG/ML VIAL SLOW IVP SCH ×3 (10:01→21:18)
[2023-06-06] MEDS: Senokot S 8.6-50 MG TAB PO SCH ×2 (10:02→21:19)
[2023-06-06] MEDS: Polyethylene Glycol 3350 17 GM Packet PO SCH (10:02)
[2023-06-06] MEDS: Pantoprazole 40 MG VIAL IVP SCH (10:02)
[2023-06-06] MEDS: Acetaminophen 650 MG/20.3 ML UDCUP PO PRN ×2 (13:41→21:17)
[2023-06-06] MEDS: Lorazepam 2 MG/ML VIAL SLOW IVP PRN (13:42)
[2023-06-06] MEDS: Enoxaparin 40 MG (0.4 mL) SYRINGE SC SCH (21:16)
[2023-06-06] MEDS: Baclofen 10 MG TAB PO SCH (21:19)
[2023-06-07 05:17] LABS: #Eosinphils 0.1 thou/uL (0.0-0.7); #Neutrophils 6.7 thou/uL (1.40-6.50); %Basophils 0.1 % (0.0-1.0); %Eosinophils 0.8 % (0.0-10.0); %Lymphocytes 18.6 % (21.0-51.0); %Monocytes 10.3 % (0.0-10.0); %Neutrophils 69.9 % (42.0-75.0); Hematocrit 39.5 % (42.0-52.0); Hemoglobin 13.2 g/dL (14.0-18.0); Mean Corpuscular HGB CONC 33.4 g/dL (32.0-36.0); Mean Corpuscular Volume 83.7 fl (78.0-98.0); Mean Platelet Volume 9.9 fL (7.4-10.4); Platelet Count 267 10x3/uL (130-400); RBC Distribution Width 13.2 % (11.5-14.5); Red Blood Cell (RBC) Count 4.72 mill/uL (4.70-6.10); White Blood Cell (WBC) Count 9.5 10x3/uL (4.8-10.8)
[2023-06-07] MEDS: Sodium Chloride 0.45% 1,000 ML IV SCH (06:16)
[2023-06-07 06:27] LABS: ALT (SGPT) 375 U/L (8-55); AST (SGOT) 79 U/L (5-34); Albumin 3.7 g/dL (3.5-5.0); Alkaline Phosphatase 52 U/L (40-110); Anion Gap 13 mmol/L (10-20); BUN (Urea Nitrogen) 12 mg/dL (8.9-20.6); Bilirubin, Total 1.4 mg/dL (0.2-1.2); Calc. Creatinine Clearance 133 mL/min (70-130); Calcium 8.9 mg/dL (7.8-10.44); Carbon Dioxide 21 mmol/L (22-29); Chloride 103 mmol/L (98-107); Estimated GFR 121; Glucose 91 mg/dL (70-105); Potassium 4.2 mmol/L (3.5-5.1); Protein, Total 6.7 g/dL (6.0-8.3); Sodium 133 mmol/L (136-145)
[2023-06-07] MEDS: Doxycycline 100 MG CAP PO SCH ×2 (09:22→21:24)
[2023-06-07] MEDS: Thiamine 100 MG TAB PO SCH (09:22)
[2023-06-07] MEDS: Polyethylene Glycol 3350 17 GM Packet PO SCH (09:22)
[2023-06-07] MEDS: pyridOXINE 50 MG (B6) TAB PO SCH (09:22)
[2023-06-07] MEDS: hydrALAZINE 20 MG/ML VIAL SLOW IVP SCH ×3 (09:22→21:25)
[2023-06-07] MEDS: Senokot S 8.6-50 MG TAB PO SCH ×2 (09:22→21:25)
[2023-06-07] MEDS: Baclofen 10 MG TAB PO SCH ×2 (09:22→21:24)
[2023-06-07] MEDS: Pantoprazole 40 MG VIAL IVP SCH (09:22)
[2023-06-07 12:07] LABS: Hemoglobin A1c 6.2 % (4.0-6.0)
[2023-06-07 12:18] LABS: INR-International Normal Ratio 1.1; PTT 24.6 sec (22.9-36.1); Prothrombin Time 14.4 sec (12.0-14.7)
[2023-06-07 12:21] LABS: Protein C Activity 113 % (78-152)
[2023-06-07 12:26] LABS: Cardiac Risk 6.3 (Less than 4.5)
[2023-06-07 12:28] LABS: D-Dimer Test 6.42 *mcg/mL (0.27-0.43)
[2023-06-07 12:36] LABS: Homocysteine 4.34 umol/L (5.08-15.39)
[2023-06-07 12:37] LABS: Thyroid Stimulating Hormone 1.1916 uIU/mL (0.35-4.94)
[2023-06-07] MEDS: Enoxaparin 40 MG (0.4 mL) SYRINGE SC SCH (21:23)
[2023-06-07] MEDS: levETIRAcetam 500 MG TAB PO SCH (21:23)
[2023-06-07] MEDS: Acetaminophen 650 MG/20.3 ML UDCUP PO PRN (21:24)
[2023-06-07] MEDS: Atorvastatin Calcium 40 MG TAB PO SCH (21:25)
[2023-06-08] MEDS: Sodium Chloride 0.45% 1,000 ML IV SCH ×3 (00:58→21:19)
[2023-06-08 05:22] LABS: #Eosinphils 0.1 thou/uL (0.0-0.7); #Monocytes 1.2 thou/uL (0.11-0.59); #Neutrophils 7.3 thou/uL (1.40-6.50); %Basophils 0.3 % (0.0-1.0); %Eosinophils 1.1 % (0.0-10.0); %Lymphocytes 22.6 % (21.0-51.0); %Monocytes 10.8 % (0.0-10.0); %Neutrophils 64.9 % (42.0-75.0); Hematocrit 41.6 % (42.0-52.0); Hemoglobin 13.5 g/dL (14.0-18.0); Mean Corpuscular HGB CONC 32.5 g/dL (32.0-36.0); Mean Corpuscular Volume 86.3 fl (78.0-98.0); Mean Platelet Volume 10.4 fL (7.4-10.4); Platelet Count 310 10x3/uL (130-400); RBC Distribution Width 13.8 % (11.5-14.5); Red Blood Cell (RBC) Count 4.82 mill/uL (4.70-6.10); White Blood Cell (WBC) Count 11.2 10x3/uL (4.8-10.8)
[2023-06-08 06:10] LABS: ALT (SGPT) 325 U/L (8-55); AST (SGOT) 92 U/L (5-34); Alkaline Phosphatase 55 U/L (40-110); Anion Gap 16 mmol/L (10-20); BUN (Urea Nitrogen) 13 mg/dL (8.9-20.6); Bilirubin, Total 1.2 mg/dL (0.2-1.2); Calc. Creatinine Clearance 139 mL/min (70-130); Calcium 9.2 mg/dL (7.8-10.44); Carbon Dioxide 21 mmol/L (22-29); Chloride 103 mmol/L (98-107); Estimated GFR 121; Globulin 3.2 g/dL (2.4-3.5); Glucose 82 mg/dL (70-105); Potassium 4.6 mmol/L (3.5-5.1); Protein, Total 7.2 g/dL (6.0-8.3); Sodium 135 mmol/L (136-145)
[2023-06-08] MEDS: levETIRAcetam 500 MG TAB PO SCH ×3 (10:00→21:06)
[2023-06-08] MEDS: Doxycycline 100 MG CAP PO SCH ×2 (10:00→20:49)
[2023-06-08] MEDS: Baclofen 10 MG TAB PO SCH (10:00)
[2023-06-08] MEDS: Aspirin 81 mg Enteric Coated Tablet PO SCH (10:00)
[2023-06-08] MEDS: Thiamine 100 MG TAB PO SCH (10:00)
[2023-06-08] MEDS: hydrALAZINE 20 MG/ML VIAL SLOW IVP SCH ×3 (10:00→20:49)
[2023-06-08] MEDS: pyridOXINE 50 MG (B6) TAB PO SCH (10:00)
[2023-06-08] MEDS: Senokot S 8.6-50 MG TAB PO SCH ×2 (10:00→20:49)
[2023-06-08] MEDS: Pantoprazole 40 MG VIAL IVP SCH (10:01)
[2023-06-08] MEDS: Polyethylene Glycol 3350 17 GM Packet PO SCH (10:01)
[2023-06-08] MEDS: Enoxaparin 40 MG (0.4 mL) SYRINGE SC SCH (20:49)
[2023-06-08] MEDS: Atorvastatin Calcium 40 MG TAB PO SCH (20:49)
[2023-06-08] MEDS: levETIRAcetam 500 MG (5 mL) VIAL SLOW IVP SCH (21:11)
[2023-06-09 06:05] LABS: #Eosinphils 0.1 thou/uL (0.0-0.7); #Monocytes 0.7 thou/uL (0.11-0.59); #Neutrophils 4.3 thou/uL (1.40-6.50); %Basophils 0.1 % (0.0-1.0); %Eosinophils 1.2 % (0.0-10.0); %Lymphocytes 24.6 % (21.0-51.0); %Monocytes 10.5 % (0.0-10.0); %Neutrophils 63.2 % (42.0-75.0); Hematocrit 40.2 % (42.0-52.0); Hemoglobin 13.2 g/dL (14.0-18.0); Mean Corpuscular HGB CONC 32.8 g/dL (32.0-36.0); Mean Corpuscular Hemoglobin 27.3 pg (27.0-31.0); Mean Corpuscular Volume 83.1 fl (78.0-98.0); Mean Platelet Volume 10.5 fL (7.4-10.4); Platelet Count 380 10x3/uL (130-400); RBC Distribution Width 13.7 % (11.5-14.5); Red Blood Cell (RBC) Count 4.84 mill/uL (4.70-6.10); White Blood Cell (WBC) Count 6.8 10x3/uL (4.8-10.8)
[2023-06-09 06:49] LABS: ALT (SGPT) 315 U/L (8-55); AST (SGOT) 133 U/L (5-34); Albumin 3.8 g/dL (3.5-5.0); Alkaline Phosphatase 61 U/L (40-110); Anion Gap 14 mmol/L (10-20); BUN (Urea Nitrogen) 15 mg/dL (8.9-20.6); Calc. Creatinine Clearance 132 mL/min (70-130); Calcium 9.1 mg/dL (7.8-10.44); Carbon Dioxide 23 mmol/L (22-29); Chloride 102 mmol/L (98-107); Estimated GFR 120; Globulin 3.3 g/dL (2.4-3.5); Glucose 90 mg/dL (70-105); Potassium 4.4 mmol/L (3.5-5.1); Protein, Total 7.1 g/dL (6.0-8.3); Sodium 135 mmol/L (136-145)
[2023-06-09] MEDS: Thiamine 100 MG TAB PO SCH (08:43)
[2023-06-09] MEDS: Pantoprazole 40 MG VIAL IVP SCH (08:43)
[2023-06-09] MEDS: Polyethylene Glycol 3350 17 GM Packet PO SCH (08:43)
[2023-06-09] MEDS: Aspirin 81 mg Enteric Coated Tablet PO SCH (08:43)
[2023-06-09] MEDS: pyridOXINE 50 MG (B6) TAB PO SCH (08:43)
[2023-06-09] MEDS: hydrALAZINE 20 MG/ML VIAL SLOW IVP SCH ×3 (08:45→21:27)
[2023-06-09] MEDS: levETIRAcetam 500 MG (5 mL) VIAL SLOW IVP SCH ×2 (08:47→21:24)
[2023-06-09] MEDS: Senokot S 8.6-50 MG TAB PO SCH ×2 (09:24→21:24)
[2023-06-09 11:54] LABS: HEX PHOS LA Tube 1 33.9 SEC; HEX PHOS LA Tube 2 33.7 SEC; Hexagonal Phospholipid Neut 0.2 SEC (0-8.0)
[2023-06-09] MEDS: Sodium Chloride 0.45% 1,000 ML IV SCH (12:00)
[2023-06-09 14:15] LABS: Cardiolipin IgA Ab 3.4 APL-U/mL (<14 Negative); Cardiolipin IgG Ab 1.4 GPL-U/mL (<10 Negative); Cardiolipin IgM Ab 2.3 MPL-U/mL (<10 Negative); EliA APS New Method **** NEW METHOD ****
[2023-06-09] MEDS: Enoxaparin 40 MG (0.4 mL) SYRINGE SC SCH (21:24)
[2023-06-09] MEDS: Atorvastatin Calcium 40 MG TAB PO SCH (21:24)
[2023-06-10] MEDS: Sodium Chloride 0.45% 1,000 ML IV SCH ×2 (00:21→13:50)
[2023-06-10 05:34] LABS: #Eosinphils 0.2 thou/uL (0.0-0.7); #Monocytes 0.8 thou/uL (0.11-0.59); %Basophils 0.3 % (0.0-1.0); %Eosinophils 2.2 % (0.0-10.0); %Lymphocytes 27.7 % (21.0-51.0); %Monocytes 11.5 % (0.0-10.0); %Neutrophils 57.9 % (42.0-75.0); Hematocrit 41.9 % (42.0-52.0); Hemoglobin 13.4 g/dL (14.0-18.0); Mean Corpuscular Hemoglobin 27.5 pg (27.0-31.0); Mean Platelet Volume 9.8 fL (7.4-10.4); Platelet Count 387 10x3/uL (130-400); RBC Distribution Width 13.8 % (11.5-14.5); Red Blood Cell (RBC) Count 4.87 mill/uL (4.70-6.10); White Blood Cell (WBC) Count 6.9 10x3/uL (4.8-10.8)
[2023-06-10 05:56] LABS: ALT (SGPT) 336 U/L (8-55); AST (SGOT) 164 U/L (5-34); Albumin 4.2 g/dL (3.5-5.0); Alkaline Phosphatase 68 U/L (40-110); Anion Gap 13 mmol/L (10-20); BUN (Urea Nitrogen) 17 mg/dL (8.9-20.6); Bilirubin, Total 0.9 mg/dL (0.2-1.2); Calc. Creatinine Clearance 134 mL/min (70-130); Calcium 9.4 mg/dL (7.8-10.44); Carbon Dioxide 23 mmol/L (22-29); Chloride 101 mmol/L (98-107); Estimated GFR 120; Globulin 3.4 g/dL (2.4-3.5); Glucose 107 mg/dL (70-105); Potassium 4.6 mmol/L (3.5-5.1); Protein, Total 7.6 g/dL (6.0-8.3); Sodium 132 mmol/L (136-145)
[2023-06-10] MEDS: Polyethylene Glycol 3350 17 GM Packet PO SCH (08:34)
[2023-06-10] MEDS: Pantoprazole 40 MG VIAL IVP SCH (08:34)
[2023-06-10] MEDS: Thiamine 100 MG TAB PO SCH (08:34)
[2023-06-10] MEDS: Aspirin 81 mg Enteric Coated Tablet PO SCH (08:34)
[2023-06-10] MEDS: Senokot S 8.6-50 MG TAB PO SCH ×2 (08:34→20:32)
[2023-06-10] MEDS: pyridOXINE 50 MG (B6) TAB PO SCH (08:34)
[2023-06-10] MEDS: levETIRAcetam 500 MG (5 mL) VIAL SLOW IVP SCH (08:35)
[2023-06-10] MEDS: hydrALAZINE 20 MG/ML VIAL SLOW IVP SCH ×3 (08:36→20:30)
[2023-06-10] MEDS: Acetaminophen 650 MG/20.3 ML UDCUP PO PRN (16:06)
[2023-06-10] MEDS: Enoxaparin 40 MG (0.4 mL) SYRINGE SC SCH (20:28)
[2023-06-10] MEDS: Atorvastatin Calcium 40 MG TAB PO SCH (20:28)
[2023-06-11] MEDS: Sodium Chloride 0.45% 1,000 ML IV SCH (02:44)
[2023-06-11 05:27] LABS: #Eosinphils 0.1 thou/uL (0.0-0.7); #Monocytes 0.8 thou/uL (0.11-0.59); #Neutrophils 3.1 thou/uL (1.40-6.50); %Basophils 0.4 % (0.0-1.0); %Eosinophils 2.1 % (0.0-10.0); %Lymphocytes 28.9 % (21.0-51.0); %Monocytes 14.3 % (0.0-10.0); %Neutrophils 53.9 % (42.0-75.0); Hematocrit 40.1 % (42.0-52.0); Hemoglobin 13.2 g/dL (14.0-18.0); Mean Corpuscular HGB CONC 32.9 g/dL (32.0-36.0); Mean Corpuscular Hemoglobin 27.5 pg (27.0-31.0); Mean Corpuscular Volume 83.5 fl (78.0-98.0); Mean Platelet Volume 9.4 fL (7.4-10.4); Platelet Count 465 10x3/uL (130-400); RBC Distribution Width 13.5 % (11.5-14.5); White Blood Cell (WBC) Count 5.7 10x3/uL (4.8-10.8)
[2023-06-11 05:50] LABS: ALT (SGPT) 327 U/L (8-55); AST (SGOT) 150 U/L (5-34); Albumin 3.9 g/dL (3.5-5.0); Alkaline Phosphatase 62 U/L (40-110); Anion Gap 14 mmol/L (10-20); BUN (Urea Nitrogen) 21 mg/dL (8.9-20.6); Bilirubin, Total 0.8 mg/dL (0.2-1.2); Calc. Creatinine Clearance 128 mL/min (70-130); Calcium 9.6 mg/dL (7.8-10.44); Carbon Dioxide 24 mmol/L (22-29); Chloride 100 mmol/L (98-107); Estimated GFR 118; Globulin 3.5 g/dL (2.4-3.5); Glucose 94 mg/dL (70-105); Potassium 4.6 mmol/L (3.5-5.1); Protein, Total 7.4 g/dL (6.0-8.3); Sodium 133 mmol/L (136-145)
[2023-06-11] MEDS: Aspirin 81 mg Enteric Coated Tablet PO SCH (09:08)
[2023-06-11] MEDS: pyridOXINE 50 MG (B6) TAB PO SCH (09:08)
[2023-06-11] MEDS: Pantoprazole 40 MG VIAL IVP SCH (09:08)
[2023-06-11] MEDS: Polyethylene Glycol 3350 17 GM Packet PO SCH (09:09)
[2023-06-11] MEDS: hydrALAZINE 20 MG/ML VIAL SLOW IVP SCH ×3 (09:09→21:02)
[2023-06-11] MEDS: Senokot S 8.6-50 MG TAB PO SCH ×2 (09:09→20:58)
[2023-06-11] MEDS: Thiamine 100 MG TAB PO SCH (09:18)
[2023-06-11 17:13] LABS: Activated Protein C Resistance 2.3 ratio (.)
[2023-06-11] MEDS: Enoxaparin 40 MG (0.4 mL) SYRINGE SC SCH (21:02)
[2023-06-11] MEDS: Atorvastatin Calcium 40 MG TAB PO SCH (21:02)
[2023-06-12 04:16] LABS: #Eosinphils 0.1 thou/uL (0.0-0.7); #Monocytes 0.7 thou/uL (0.11-0.59); %Basophils 0.2 % (0.0-1.0); %Eosinophils 1.8 % (0.0-10.0); %Lymphocytes 31.7 % (21.0-51.0); %Monocytes 13.1 % (0.0-10.0); Hematocrit 39.1 % (42.0-52.0); Mean Corpuscular HGB CONC 33.2 g/dL (32.0-36.0); Mean Corpuscular Hemoglobin 27.6 pg (27.0-31.0); Mean Platelet Volume 9.6 fL (7.4-10.4); Platelet Count 449 10x3/uL (130-400); RBC Distribution Width 13.3 % (11.5-14.5); Red Blood Cell (RBC) Count 4.71 mill/uL (4.70-6.10); White Blood Cell (WBC) Count 5.7 10x3/uL (4.8-10.8)
[2023-06-12 04:40] LABS: ALT (SGPT) 293 U/L (8-55); AST (SGOT) 130 U/L (5-34); Albumin 4.1 g/dL (3.5-5.0); Alkaline Phosphatase 69 U/L (40-110); Anion Gap 13 mmol/L (10-20); BUN (Urea Nitrogen) 21 mg/dL (8.9-20.6); Bilirubin, Total 0.7 mg/dL (0.2-1.2); Calc. Creatinine Clearance 124 mL/min (70-130); Calcium 9.6 mg/dL (7.8-10.44); Carbon Dioxide 25 mmol/L (22-29); Chloride 99 mmol/L (98-107); Estimated GFR 118; Globulin 3.2 g/dL (2.4-3.5); Glucose 102 mg/dL (70-105); Potassium 4.7 mmol/L (3.5-5.1); Protein, Total 7.3 g/dL (6.0-8.3); Sodium 132 mmol/L (136-145)
[2023-06-12] MEDS: hydrALAZINE 20 MG/ML VIAL SLOW IVP SCH ×2 (09:10→10:49)
[2023-06-12] MEDS: Pantoprazole 40 MG VIAL IVP SCH ×2 (09:10→10:49)
[2023-06-12] MEDS: Aspirin 81 mg Enteric Coated Tablet PO SCH (09:11)
[2023-06-12] MEDS: Polyethylene Glycol 3350 17 GM Packet PO SCH (09:11)
[2023-06-12] MEDS: Senokot S 8.6-50 MG TAB PO SCH ×2 (09:11→21:09)
[2023-06-12] MEDS: pyridOXINE 50 MG (B6) TAB PO SCH (09:11)
[2023-06-12] MEDS: Thiamine 100 MG TAB PO SCH (09:11)
[2023-06-12] MEDS: hydrALAZINE 25 MG TAB PO SCH ×2 (14:59→21:09)
[2023-06-12] MEDS: Enoxaparin 40 MG (0.4 mL) SYRINGE SC SCH (21:09)
[2023-06-12] MEDS: Atorvastatin Calcium 40 MG TAB PO SCH (21:09)
[2023-06-13] MEDS: pyridOXINE 50 MG (B6) TAB PO SCH (08:48)
[2023-06-13] MEDS: Aspirin 81 mg Enteric Coated Tablet PO SCH (08:48)
[2023-06-13] MEDS: hydrALAZINE 25 MG TAB PO SCH ×3 (08:48→21:26)
[2023-06-13] MEDS: Thiamine 100 MG TAB PO SCH (08:48)
[2023-06-13] MEDS: Polyethylene Glycol 3350 17 GM Packet PO SCH (08:49)
[2023-06-13] MEDS: Senokot S 8.6-50 MG TAB PO SCH ×2 (08:49→21:26)
[2023-06-13] MEDS: Acetaminophen 650 MG/20.3 ML UDCUP PO PRN ×2 (15:20→21:27)
[2023-06-13] MEDS: Atorvastatin Calcium 40 MG TAB PO SCH (21:26)
[2023-06-13] MEDS: Enoxaparin 40 MG (0.4 mL) SYRINGE SC SCH (21:26)
[2023-06-14] MEDS: hydrALAZINE 25 MG TAB PO SCH ×3 (08:37→21:51)
[2023-06-14] MEDS: Aspirin 81 mg Enteric Coated Tablet PO SCH (08:37)
[2023-06-14] MEDS: Thiamine 100 MG TAB PO SCH (08:38)
[2023-06-14] MEDS: pyridOXINE 50 MG (B6) TAB PO SCH (08:38)
[2023-06-14] MEDS: Polyethylene Glycol 3350 17 GM Packet PO SCH (08:45)
[2023-06-14] MEDS: Senokot S 8.6-50 MG TAB PO SCH ×2 (08:45→21:51)
[2023-06-14] MEDS: Atorvastatin Calcium 40 MG TAB PO SCH (21:51)
[2023-06-14] MEDS: Acetaminophen 650 MG/20.3 ML UDCUP PO PRN (21:52)
[2023-06-14] MEDS: Enoxaparin 40 MG (0.4 mL) SYRINGE SC SCH (21:52)
[2023-06-15] MEDS: pyridOXINE 50 MG (B6) TAB PO SCH (08:19)
[2023-06-15] MEDS: hydrALAZINE 25 MG TAB PO SCH ×3 (08:19→22:30)
[2023-06-15] MEDS: Thiamine 100 MG TAB PO SCH (08:19)
[2023-06-15] MEDS: Senokot S 8.6-50 MG TAB PO SCH ×2 (08:19→22:31)
[2023-06-15] MEDS: Aspirin 81 mg Enteric Coated Tablet PO SCH (08:19)
[2023-06-15] MEDS: Polyethylene Glycol 3350 17 GM Packet PO SCH (08:26)
[2023-06-15 08:44] LABS: #Eosinphils 0.1 thou/uL (0.0-0.7); #Monocytes 0.6 thou/uL (0.11-0.59); #Neutrophils 2.6 thou/uL (1.40-6.50); %Basophils 0.8 % (0.0-1.0); %Eosinophils 1.7 % (0.0-10.0); %Neutrophils 50.3 % (42.0-75.0); Hematocrit 40.5 % (42.0-52.0); Hemoglobin 13.4 g/dL (14.0-18.0); Mean Corpuscular HGB CONC 33.1 g/dL (32.0-36.0); Mean Corpuscular Hemoglobin 27.5 pg (27.0-31.0); Mean Corpuscular Volume 83.2 fl (78.0-98.0); Mean Platelet Volume 9.7 fL (7.4-10.4); Platelet Count 473 10x3/uL (130-400); RBC Distribution Width 13.3 % (11.5-14.5); Red Blood Cell (RBC) Count 4.87 mill/uL (4.70-6.10); White Blood Cell (WBC) Count 5.2 10x3/uL (4.8-10.8)
[2023-06-15 09:07] LABS: ALT (SGPT) 172 U/L (8-55); AST (SGOT) 82 U/L (5-34); Albumin 3.9 g/dL (3.5-5.0); Alkaline Phosphatase 66 U/L (40-110); Anion Gap 14 mmol/L (10-20); BUN (Urea Nitrogen) 22 mg/dL (8.9-20.6); Bilirubin, Total 0.7 mg/dL (0.2-1.2); Calc. Creatinine Clearance 122 mL/min (70-130); Calcium 9.9 mg/dL (7.8-10.44); Carbon Dioxide 25 mmol/L (22-29); Chloride 99 mmol/L (98-107); Estimated GFR 118; Globulin 3.5 g/dL (2.4-3.5); Glucose 95 mg/dL (70-105); Potassium 4.6 mmol/L (3.5-5.1); Protein, Total 7.4 g/dL (6.0-8.3); Sodium 133 mmol/L (136-145)
[2023-06-15] MEDS: Atorvastatin Calcium 40 MG TAB PO SCH (22:30)
[2023-06-15] MEDS: Enoxaparin 40 MG (0.4 mL) SYRINGE SC SCH (22:31)
[2023-06-16] MEDS: Senokot S 8.6-50 MG TAB PO SCH ×2 (08:52→20:57)
[2023-06-16] MEDS: pyridOXINE 50 MG (B6) TAB PO SCH (08:52)
[2023-06-16] MEDS: Aspirin 81 mg Enteric Coated Tablet PO SCH (08:52)
[2023-06-16] MEDS: Thiamine 100 MG TAB PO SCH (08:52)
[2023-06-16] MEDS: hydrALAZINE 25 MG TAB PO SCH ×3 (08:52→20:58)
[2023-06-16] MEDS: Polyethylene Glycol 3350 17 GM Packet PO SCH (12:35)
[2023-06-16] MEDS: Atorvastatin Calcium 40 MG TAB PO SCH (20:57)
[2023-06-16] MEDS: Enoxaparin 40 MG (0.4 mL) SYRINGE SC SCH (20:58)
[2023-06-17] MEDS: Aspirin 81 mg Enteric Coated Tablet PO SCH (08:40)
[2023-06-17] MEDS: pyridOXINE 50 MG (B6) TAB PO SCH (08:40)
[2023-06-17] MEDS: Senokot S 8.6-50 MG TAB PO SCH ×2 (08:40→21:06)
[2023-06-17] MEDS: hydrALAZINE 25 MG TAB PO SCH ×3 (08:40→21:06)
[2023-06-17] MEDS: Thiamine 100 MG TAB PO SCH (08:40)
[2023-06-17] MEDS: Polyethylene Glycol 3350 17 GM Packet PO SCH (08:50)
[2023-06-17] MEDS: Atorvastatin Calcium 40 MG TAB PO SCH (21:05)
[2023-06-17] MEDS: Enoxaparin 40 MG (0.4 mL) SYRINGE SC SCH (21:06)
[2023-06-18] MEDS: hydrALAZINE 25 MG TAB PO SCH ×3 (09:36→20:50)
[2023-06-18] MEDS: pyridOXINE 50 MG (B6) TAB PO SCH (09:36)
[2023-06-18] MEDS: Thiamine 100 MG TAB PO SCH (09:36)
[2023-06-18] MEDS: Aspirin 81 mg Enteric Coated Tablet PO SCH (09:36)
[2023-06-18] MEDS: Senokot S 8.6-50 MG TAB PO SCH ×2 (09:36→20:51)
[2023-06-18] MEDS: Polyethylene Glycol 3350 17 GM Packet PO SCH (09:37)
[2023-06-18] MEDS: Acetaminophen 650 MG/20.3 ML UDCUP PO PRN (20:43)
[2023-06-18] MEDS: Enoxaparin 40 MG (0.4 mL) SYRINGE SC SCH (20:45)
[2023-06-18] MEDS: Atorvastatin Calcium 40 MG TAB PO SCH (20:45)
[2023-06-19] MEDS: Polyethylene Glycol 3350 17 GM Packet PO SCH (08:32)
[2023-06-19] MEDS: pyridOXINE 50 MG (B6) TAB PO SCH (08:32)
[2023-06-19] MEDS: Senokot S 8.6-50 MG TAB PO SCH ×2 (08:32→20:03)
[2023-06-19] MEDS: hydrALAZINE 25 MG TAB PO SCH ×3 (08:32→20:02)
[2023-06-19] MEDS: Aspirin 81 mg Enteric Coated Tablet PO SCH (08:32)
[2023-06-19] MEDS: Thiamine 100 MG TAB PO SCH (08:33)
[2023-06-19] MEDS: Acetaminophen 650 MG/20.3 ML UDCUP PO PRN (09:27)
[2023-06-19] MEDS: Acetaminophen 650 MG/20.3 ML UDCUP PO SCH ×2 (14:36→20:02)
[2023-06-19] MEDS: Atorvastatin Calcium 40 MG TAB PO SCH (20:02)
[2023-06-19] MEDS: Enoxaparin 40 MG (0.4 mL) SYRINGE SC SCH (20:03)
[2023-06-20] MEDS ORDERED: hydrOXYzine 25 MG TAB PO SCH (00:15)
[2023-06-20] MEDS: Acetaminophen 650 MG/20.3 ML UDCUP PO SCH ×4 (02:04→20:39)
[2023-06-20] MEDS ORDERED: OLANZapine 5 MG TAB PO SCH (03:00)
[2023-06-20] MEDS: hydrALAZINE 25 MG TAB PO SCH ×3 (08:50→20:39)
[2023-06-20] MEDS: Polyethylene Glycol 3350 17 GM Packet PO SCH (08:53)
[2023-06-20] MEDS: Thiamine 100 MG TAB PO SCH (08:54)
[2023-06-20] MEDS: Senokot S 8.6-50 MG TAB PO SCH ×2 (08:54→20:38)
[2023-06-20] MEDS: pyridOXINE 50 MG (B6) TAB PO SCH (08:54)
[2023-06-20] MEDS: Aspirin 81 mg Enteric Coated Tablet PO SCH (08:54)
[2023-06-20] MEDS: Atorvastatin Calcium 40 MG TAB PO SCH (20:39)
[2023-06-20] MEDS: Enoxaparin 40 MG (0.4 mL) SYRINGE SC SCH (20:39)
[2023-06-20] MEDS: Temazepam 15 MG CAP PO PRN (21:23)
[2023-06-21] MEDS: Acetaminophen 650 MG/20.3 ML UDCUP PO SCH ×4 (03:28→21:50)
[2023-06-21] MEDS: pyridOXINE 50 MG (B6) TAB PO SCH (08:52)
[2023-06-21] MEDS: Aspirin 81 mg Enteric Coated Tablet PO SCH (08:52)
[2023-06-21] MEDS: hydrALAZINE 25 MG TAB PO SCH ×3 (08:53→21:50)
[2023-06-21] MEDS: Polyethylene Glycol 3350 17 GM Packet PO SCH (08:53)
[2023-06-21] MEDS: Senokot S 8.6-50 MG TAB PO SCH ×2 (08:54→21:50)
[2023-06-21] MEDS: Thiamine 100 MG TAB PO SCH (08:54)
[2023-06-21] MEDS: Atorvastatin Calcium 40 MG TAB PO SCH (21:49)
[2023-06-21] MEDS: Temazepam 15 MG CAP PO PRN (21:50)
[2023-06-21] MEDS: Enoxaparin 40 MG (0.4 mL) SYRINGE SC SCH (21:50)
[2023-06-22] MEDS: Acetaminophen 650 MG/20.3 ML UDCUP PO SCH ×4 (03:46→20:34)
[2023-06-22] MEDS: Thiamine 100 MG TAB PO SCH (10:15)
[2023-06-22] MEDS: pyridOXINE 50 MG (B6) TAB PO SCH (10:15)
[2023-06-22] MEDS: Aspirin 81 mg Enteric Coated Tablet PO SCH (10:15)
[2023-06-22] MEDS: hydrALAZINE 25 MG TAB PO SCH ×3 (10:16→20:35)
[2023-06-22] MEDS: Polyethylene Glycol 3350 17 GM Packet PO SCH (10:16)
[2023-06-22] MEDS: Senokot S 8.6-50 MG TAB PO SCH ×2 (10:16→20:38)
[2023-06-22] MEDS: Enoxaparin 40 MG (0.4 mL) SYRINGE SC SCH (20:34)
[2023-06-22] MEDS: Temazepam 15 MG CAP PO PRN (20:38)
[2023-06-22] MEDS: Atorvastatin Calcium 40 MG TAB PO SCH (20:38)
[2023-06-23] MEDS: Acetaminophen 650 MG/20.3 ML UDCUP PO SCH ×4 (03:25→20:58)
[2023-06-23 05:07] LABS: #Eosinphils 0.4 thou/uL (0.0-0.7); #Monocytes 0.7 thou/uL (0.11-0.59); #Neutrophils 3.5 thou/uL (1.40-6.50); %Basophils 0.6 % (0.0-1.0); %Eosinophils 5.6 % (0.0-10.0); %Lymphocytes 34.4 % (21.0-51.0); %Monocytes 9.9 % (0.0-10.0); %Neutrophils 49.1 % (42.0-75.0); Hematocrit 37.3 % (42.0-52.0); Hemoglobin 12.2 g/dL (14.0-18.0); Mean Corpuscular HGB CONC 32.7 g/dL (32.0-36.0); Mean Corpuscular Hemoglobin 28.1 pg (27.0-31.0); Mean Corpuscular Volume 85.9 fl (78.0-98.0); Mean Platelet Volume 11.3 fL (7.4-10.4); Platelet Count 373 10x3/uL (130-400); RBC Distribution Width 13.7 % (11.5-14.5); Red Blood Cell (RBC) Count 4.34 mill/uL (4.70-6.10); White Blood Cell (WBC) Count 7.2 10x3/uL (4.8-10.8)
[2023-06-23 05:42] LABS: ALT (SGPT) 119 U/L (8-55); AST (SGOT) 82 U/L (5-34); Albumin 3.7 g/dL (3.5-5.0); Alkaline Phosphatase 84 U/L (40-110); Anion Gap 15 mmol/L (10-20); BUN (Urea Nitrogen) 15 mg/dL (8.9-20.6); Bilirubin, Direct 0.1 mg/dL (0.1-0.3); Bilirubin, Total 0.2 mg/dL (0.2-1.2); Calc. Creatinine Clearance 128 mL/min (70-130); Calcium 9.4 mg/dL (7.8-10.44); Carbon Dioxide 23 mmol/L (22-29); Chloride 104 mmol/L (98-107); Estimated GFR 119; Glucose 77 mg/dL (70-105); Potassium 4.3 mmol/L (3.5-5.1); Protein, Total 6.9 g/dL (6.0-8.3); Sodium 138 mmol/L (136-145)
[2023-06-23] MEDS: Polyethylene Glycol 3350 17 GM Packet PO SCH (10:31)
[2023-06-23] MEDS: hydrALAZINE 25 MG TAB PO SCH ×3 (10:31→20:59)
[2023-06-23] MEDS: Aspirin 81 mg Enteric Coated Tablet PO SCH (10:31)
[2023-06-23] MEDS: pyridOXINE 50 MG (B6) TAB PO SCH (10:32)
[2023-06-23] MEDS: Senokot S 8.6-50 MG TAB PO SCH ×2 (10:32→20:59)
[2023-06-23] MEDS: Thiamine 100 MG TAB PO SCH (10:33)
[2023-06-23] MEDS: Enoxaparin 40 MG (0.4 mL) SYRINGE SC SCH (20:58)
[2023-06-23] MEDS: Temazepam 15 MG CAP PO PRN (20:59)
[2023-06-23] MEDS: Atorvastatin Calcium 40 MG TAB PO SCH (20:59)
[2023-06-24] MEDS: Acetaminophen 650 MG/20.3 ML UDCUP PO SCH ×4 (02:14→21:26)
[2023-06-24] MEDS: hydrALAZINE 25 MG TAB PO SCH ×3 (09:49→21:26)
[2023-06-24] MEDS: Aspirin 81 mg Enteric Coated Tablet PO SCH (09:50)
[2023-06-24] MEDS: pyridOXINE 50 MG (B6) TAB PO SCH (09:50)
[2023-06-24] MEDS: Polyethylene Glycol 3350 17 GM Packet PO SCH (09:50)
[2023-06-24] MEDS: Senokot S 8.6-50 MG TAB PO SCH ×2 (09:50→21:27)
[2023-06-24] MEDS: Thiamine 100 MG TAB PO SCH (09:50)
[2023-06-24] MEDS: Enoxaparin 40 MG (0.4 mL) SYRINGE SC SCH (21:26)
[2023-06-24] MEDS: Atorvastatin Calcium 40 MG TAB PO SCH (21:26)
[2023-06-24] MEDS: Temazepam 15 MG CAP PO PRN (21:26)
[2023-06-25] MEDS: Acetaminophen 650 MG/20.3 ML UDCUP PO SCH ×4 (03:41→20:51)
[2023-06-25] MEDS: Thiamine 100 MG TAB PO SCH (08:55)
[2023-06-25] MEDS: hydrALAZINE 25 MG TAB PO SCH ×3 (08:55→20:54)
[2023-06-25] MEDS: pyridOXINE 50 MG (B6) TAB PO SCH (08:55)
[2023-06-25] MEDS: Aspirin 81 mg Enteric Coated Tablet PO SCH (08:55)
[2023-06-25] MEDS: Polyethylene Glycol 3350 17 GM Packet PO SCH (08:56)
[2023-06-25] MEDS: Senokot S 8.6-50 MG TAB PO SCH ×2 (08:57→20:54)
[2023-06-25] MEDS: Atorvastatin Calcium 40 MG TAB PO SCH (20:53)
[2023-06-25] MEDS: Temazepam 15 MG CAP PO PRN (20:53)
[2023-06-25] MEDS: Enoxaparin 40 MG (0.4 mL) SYRINGE SC SCH (20:54)
[2023-06-26] MEDS: Acetaminophen 650 MG/20.3 ML UDCUP PO SCH ×4 (02:13→20:14)
[2023-06-26 09:29] LABS: #Eosinphils 0.2 thou/uL (0.0-0.7); #Monocytes 0.7 thou/uL (0.11-0.59); #Neutrophils 4.4 thou/uL (1.40-6.50); %Basophils 0.5 % (0.0-1.0); %Eosinophils 1.9 % (0.0-10.0); %Lymphocytes 32.4 % (21.0-51.0); %Monocytes 8.5 % (0.0-10.0); %Neutrophils 55.8 % (42.0-75.0); Hematocrit 42.1 % (42.0-52.0); Hemoglobin 13.7 g/dL (14.0-18.0); Mean Corpuscular HGB CONC 32.5 g/dL (32.0-36.0); Mean Corpuscular Hemoglobin 27.5 pg (27.0-31.0); Mean Corpuscular Volume 84.5 fl (78.0-98.0); Mean Platelet Volume 9.8 fL (7.4-10.4); Platelet Count 470 10x3/uL (130-400); RBC Distribution Width 14.2 % (11.5-14.5); Red Blood Cell (RBC) Count 4.98 mill/uL (4.70-6.10); White Blood Cell (WBC) Count 7.9 10x3/uL (4.8-10.8)
[2023-06-26] MEDS: Senokot S 8.6-50 MG TAB PO SCH ×2 (09:35→20:14)
[2023-06-26] MEDS: Polyethylene Glycol 3350 17 GM Packet PO SCH (09:35)
[2023-06-26] MEDS: pyridOXINE 50 MG (B6) TAB PO SCH (09:35)
[2023-06-26] MEDS: Aspirin 81 mg Enteric Coated Tablet PO SCH (09:35)
[2023-06-26] MEDS: hydrALAZINE 25 MG TAB PO SCH ×3 (09:35→20:15)
[2023-06-26] MEDS: Thiamine 100 MG TAB PO SCH (09:35)
[2023-06-26 09:52] LABS: Anion Gap 15 mmol/L (10-20); BUN (Urea Nitrogen) 14 mg/dL (8.9-20.6); Calc. Creatinine Clearance 142 mL/min (70-130); Calcium 10.1 mg/dL (7.8-10.44); Carbon Dioxide 25 mmol/L (22-29); Chloride 101 mmol/L (98-107); Estimated GFR 122; Glucose 94 mg/dL (70-105); Potassium 4.7 mmol/L (3.5-5.1); Sodium 136 mmol/L (136-145)
[2023-06-26] MEDS: Enoxaparin 40 MG (0.4 mL) SYRINGE SC SCH (20:15)
[2023-06-26] MEDS: Atorvastatin Calcium 40 MG TAB PO SCH (20:15)
[2023-06-27] MEDS: Acetaminophen 650 MG/20.3 ML UDCUP PO SCH ×4 (04:41→20:26)
[2023-06-27] MEDS: hydrALAZINE 25 MG TAB PO SCH ×3 (08:45→20:30)
[2023-06-27] MEDS: pyridOXINE 50 MG (B6) TAB PO SCH (08:45)
[2023-06-27] MEDS: Thiamine 100 MG TAB PO SCH (08:46)
[2023-06-27] MEDS: Aspirin 81 mg Enteric Coated Tablet PO SCH (08:46)
[2023-06-27] MEDS: Senokot S 8.6-50 MG TAB PO SCH ×2 (08:46→20:30)
[2023-06-27] MEDS: Polyethylene Glycol 3350 17 GM Packet PO SCH (08:56)
[2023-06-27] MEDS: Temazepam 15 MG CAP PO PRN (20:30)
[2023-06-27] MEDS: Atorvastatin Calcium 40 MG TAB PO SCH (20:30)
[2023-06-27] MEDS: Enoxaparin 40 MG (0.4 mL) SYRINGE SC SCH (20:33)
[2023-06-28] MEDS: Acetaminophen 650 MG/20.3 ML UDCUP PO SCH ×4 (03:28→21:15)
[2023-06-28 06:10] LABS: ALT (SGPT) 204 U/L (8-55); AST (SGOT) 94 U/L (5-34); Albumin 3.9 g/dL (3.5-5.0); Alkaline Phosphatase 84 U/L (40-110); Anion Gap 14 mmol/L (10-20); BUN (Urea Nitrogen) 19 mg/dL (8.9-20.6); Bilirubin, Total 0.3 mg/dL (0.2-1.2); Calc. Creatinine Clearance 133 mL/min (70-130); Calcium 9.7 mg/dL (7.8-10.44); Carbon Dioxide 25 mmol/L (22-29); Chloride 103 mmol/L (98-107); Estimated GFR 120; Globulin 3.4 g/dL (2.4-3.5); Glucose 91 mg/dL (70-105); Potassium 4.8 mmol/L (3.5-5.1); Protein, Total 7.3 g/dL (6.0-8.3); Sodium 137 mmol/L (136-145)
[2023-06-28] MEDS: Polyethylene Glycol 3350 17 GM Packet PO SCH (09:18)
[2023-06-28] MEDS: Thiamine 100 MG TAB PO SCH (09:18)
[2023-06-28] MEDS: Senokot S 8.6-50 MG TAB PO SCH ×2 (09:18→21:16)
[2023-06-28] MEDS: hydrALAZINE 25 MG TAB PO SCH ×3 (09:18→21:15)
[2023-06-28] MEDS: pyridOXINE 50 MG (B6) TAB PO SCH (09:18)
[2023-06-28] MEDS: Aspirin 81 mg Enteric Coated Tablet PO SCH (09:18)
[2023-06-28] MEDS: Atorvastatin Calcium 40 MG TAB PO SCH (21:15)
[2023-06-28] MEDS: Enoxaparin 40 MG (0.4 mL) SYRINGE SC SCH (21:16)
[2023-06-29] MEDS: Acetaminophen 650 MG/20.3 ML UDCUP PO SCH ×4 (03:24→20:58)
[2023-06-29 08:40] VITALS: BMI 21.4
[2023-06-29 08:43] LABS: #Eosinphils 0.1 thou/uL (0.0-0.7); #Monocytes 0.9 thou/uL (0.11-0.59); #Neutrophils 5.7 thou/uL (1.40-6.50); %Basophils 0.3 % (0.0-1.0); %Lymphocytes 26.9 % (21.0-51.0); %Monocytes 9.6 % (0.0-10.0); %Neutrophils 61.2 % (42.0-75.0); Hematocrit 41.4 % (42.0-52.0); Hemoglobin 13.2 g/dL (14.0-18.0); Mean Corpuscular HGB CONC 31.9 g/dL (32.0-36.0); Mean Corpuscular Hemoglobin 28.1 pg (27.0-31.0); Mean Corpuscular Volume 88.3 fl (78.0-98.0); Mean Platelet Volume 9.7 fL (7.4-10.4); Platelet Count 411 10x3/uL (130-400); RBC Distribution Width 14.6 % (11.5-14.5); Red Blood Cell (RBC) Count 4.69 mill/uL (4.70-6.10); White Blood Cell (WBC) Count 9.2 10x3/uL (4.8-10.8)
[2023-06-29] MEDS: hydrALAZINE 25 MG TAB PO SCH ×3 (08:57→20:57)
[2023-06-29] MEDS: Senokot S 8.6-50 MG TAB PO SCH ×2 (08:58→20:58)
[2023-06-29] MEDS: Aspirin 81 mg Enteric Coated Tablet PO SCH (08:58)
[2023-06-29] MEDS: pyridOXINE 50 MG (B6) TAB PO SCH (08:58)
[2023-06-29] MEDS: Thiamine 100 MG TAB PO SCH (08:58)
[2023-06-29] MEDS: Polyethylene Glycol 3350 17 GM Packet PO SCH (08:59)
[2023-06-29 09:31] LABS: ALT (SGPT) 184 U/L (8-55); AST (SGOT) 93 U/L (5-34); Albumin 4.1 g/dL (3.5-5.0); Alkaline Phosphatase 73 U/L (40-110); Anion Gap 13 mmol/L (10-20); BUN (Urea Nitrogen) 15 mg/dL (8.9-20.6); Bilirubin, Direct 0.1 mg/dL (0.1-0.3); Bilirubin, Total 0.5 mg/dL (0.2-1.2); Calc. Creatinine Clearance 140 mL/min (70-130); Carbon Dioxide 24 mmol/L (22-29); Chloride 103 mmol/L (98-107); Estimated GFR 121; Glucose 79 mg/dL (70-105); Potassium 5.1 mmol/L (3.5-5.1); Protein, Total 7.7 g/dL (6.0-8.3); Sodium 135 mmol/L (136-145)
[2023-06-29] MEDS: Enoxaparin 40 MG (0.4 mL) SYRINGE SC SCH (20:57)
[2023-06-29] MEDS: Atorvastatin Calcium 40 MG TAB PO SCH (20:57)
[2023-06-29] MEDS: Temazepam 15 MG CAP PO PRN (20:58)
[2023-06-30] MEDS: Acetaminophen 650 MG/20.3 ML UDCUP PO SCH ×4 (04:51→21:19)
[2023-06-30] MEDS: hydrALAZINE 25 MG TAB PO SCH ×3 (09:13→21:19)
[2023-06-30] MEDS: pyridOXINE 50 MG (B6) TAB PO SCH (09:13)
[2023-06-30] MEDS: Thiamine 100 MG TAB PO SCH (09:13)
[2023-06-30] MEDS: Aspirin 81 mg Enteric Coated Tablet PO SCH (09:13)
[2023-06-30] MEDS: Polyethylene Glycol 3350 17 GM Packet PO SCH (09:14)
[2023-06-30] MEDS: Senokot S 8.6-50 MG TAB PO SCH ×2 (09:14→21:19)
[2023-06-30] MEDS: Enoxaparin 40 MG (0.4 mL) SYRINGE SC SCH (21:18)
[2023-06-30] MEDS: Atorvastatin Calcium 40 MG TAB PO SCH (21:19)
[2023-06-30] MEDS: Temazepam 15 MG CAP PO PRN (22:18)
[2023-07-01] MEDS: Acetaminophen 650 MG/20.3 ML UDCUP PO SCH ×4 (03:40→20:42)
[2023-07-01 05:25] LABS: Hematocrit 39.9 % (42.0-52.0); Hemoglobin 12.8 g/dL (14.0-18.0); Mean Corpuscular HGB CONC 32.1 g/dL (32.0-36.0); Mean Corpuscular Hemoglobin 27.6 pg (27.0-31.0); Mean Corpuscular Volume 86.2 fl (78.0-98.0); Mean Platelet Volume 9.8 fL (7.4-10.4); Platelet Count 410 10x3/uL (130-400); RBC Distribution Width 14.6 % (11.5-14.5); Red Blood Cell (RBC) Count 4.63 mill/uL (4.70-6.10); White Blood Cell (WBC) Count 8.7 10x3/uL (4.8-10.8)
[2023-07-01 05:51] LABS: Anion Gap 16 mmol/L (10-20); BUN (Urea Nitrogen) 17 mg/dL (8.9-20.6); CK (CPK) 458 U/L (30-200); Calc. Creatinine Clearance 132 mL/min (70-130); Calcium 9.7 mg/dL (7.8-10.44); Carbon Dioxide 23 mmol/L (22-29); Chloride 103 mmol/L (98-107); Estimated GFR 119; Glucose 88 mg/dL (70-105); Potassium 4.2 mmol/L (3.5-5.1); Sodium 138 mmol/L (136-145)
[2023-07-01] MEDS: hydrALAZINE 25 MG TAB PO SCH ×3 (09:54→20:41)
[2023-07-01] MEDS: Polyethylene Glycol 3350 17 GM Packet PO SCH (09:54)
[2023-07-01] MEDS: Senokot S 8.6-50 MG TAB PO SCH ×2 (09:55→21:00)
[2023-07-01] MEDS: Aspirin 81 mg Enteric Coated Tablet PO SCH (09:55)
[2023-07-01] MEDS: Thiamine 100 MG TAB PO SCH (09:55)
[2023-07-01] MEDS: pyridOXINE 50 MG (B6) TAB PO SCH (09:56)
[2023-07-01] MEDS ORDERED: Methocarbamol 500 MG TAB PO PRN (12:01)
[2023-07-01] MEDS: Enoxaparin 40 MG (0.4 mL) SYRINGE SC SCH (20:41)
[2023-07-01] MEDS: Atorvastatin Calcium 40 MG TAB PO SCH (20:42)
[2023-07-01] MEDS: Temazepam 15 MG CAP PO PRN (23:42)
[2023-07-02] MEDS: Acetaminophen 650 MG/20.3 ML UDCUP PO SCH ×4 (03:41→20:55)
[2023-07-02] MEDS: Aspirin 81 mg Enteric Coated Tablet PO SCH (08:42)
[2023-07-02] MEDS: pyridOXINE 50 MG (B6) TAB PO SCH (08:42)
[2023-07-02] MEDS: Thiamine 100 MG TAB PO SCH (08:42)
[2023-07-02] MEDS: Polyethylene Glycol 3350 17 GM Packet PO SCH (08:44)
[2023-07-02] MEDS: hydrALAZINE 25 MG TAB PO SCH ×3 (08:44→20:56)
[2023-07-02] MEDS: Senokot S 8.6-50 MG TAB PO SCH ×2 (08:45→20:56)
[2023-07-02] MEDS ORDERED: Methocarbamol 500 MG TAB PO PRN (10:14)
[2023-07-02] MEDS: Atorvastatin Calcium 40 MG TAB PO SCH (20:55)
[2023-07-02] MEDS: Enoxaparin 40 MG (0.4 mL) SYRINGE SC SCH (20:55)
[2023-07-02] MEDS: Temazepam 15 MG CAP PO PRN (21:07)
[2023-07-03] MEDS: Acetaminophen 650 MG/20.3 ML UDCUP PO SCH ×5 (03:33→20:00)
[2023-07-03] MEDS: pyridOXINE 50 MG (B6) TAB PO SCH (08:54)
[2023-07-03] MEDS: Thiamine 100 MG TAB PO SCH (08:54)
[2023-07-03] MEDS: Senokot S 8.6-50 MG TAB PO SCH ×2 (08:55→20:00)
[2023-07-03] MEDS: Aspirin 81 mg Enteric Coated Tablet PO SCH (08:55)
[2023-07-03] MEDS: Polyethylene Glycol 3350 17 GM Packet PO SCH (08:55)
[2023-07-03] MEDS: hydrALAZINE 25 MG TAB PO SCH ×3 (08:55→20:00)
[2023-07-03] MEDS: Atorvastatin Calcium 40 MG TAB PO SCH (19:59)
[2023-07-03] MEDS: Enoxaparin 40 MG (0.4 mL) SYRINGE SC SCH (20:00)
[2023-07-03] MEDS: Temazepam 15 MG CAP PO PRN ×2 (20:00→22:02)
[2023-07-04] MEDS: Acetaminophen 650 MG/20.3 ML UDCUP PO SCH (02:51)
[2023-07-04] MEDS ORDERED: Acetaminophen 650 MG/20.3 ML UDCUP PO PRN (08:12)
[2023-07-04] MEDS: Thiamine 100 MG TAB PO SCH (09:59)
[2023-07-04] MEDS: Aspirin 81 mg Enteric Coated Tablet PO SCH (09:59)
[2023-07-04] MEDS: pyridOXINE 50 MG (B6) TAB PO SCH (09:59)
[2023-07-04] MEDS: hydrALAZINE 25 MG TAB PO SCH ×3 (09:59→20:21)
[2023-07-04] MEDS: Polyethylene Glycol 3350 17 GM Packet PO SCH (10:00)
[2023-07-04] MEDS: Senokot S 8.6-50 MG TAB PO SCH ×2 (10:01→20:21)
[2023-07-04] MEDS: Enoxaparin 40 MG (0.4 mL) SYRINGE SC SCH (20:21)
[2023-07-04] MEDS: Atorvastatin Calcium 40 MG TAB PO SCH (20:21)
[2023-07-04] MEDS: Temazepam 15 MG CAP PO PRN (23:14)
[2023-07-05] MEDS: Thiamine 100 MG TAB PO SCH (08:51)
[2023-07-05] MEDS: pyridOXINE 50 MG (B6) TAB PO SCH (08:51)
[2023-07-05] MEDS: Aspirin 81 mg Enteric Coated Tablet PO SCH (08:52)
[2023-07-05] MEDS: hydrALAZINE 25 MG TAB PO SCH ×3 (08:52→20:27)
[2023-07-05] MEDS: Polyethylene Glycol 3350 17 GM Packet PO SCH (08:53)
[2023-07-05] MEDS: Senokot S 8.6-50 MG TAB PO SCH ×2 (08:53→20:25)
[2023-07-05] MEDS: Enoxaparin 40 MG (0.4 mL) SYRINGE SC SCH (20:26)
[2023-07-05] MEDS: Atorvastatin Calcium 40 MG TAB PO SCH (20:27)
[2023-07-05] MEDS: Temazepam 15 MG CAP PO PRN (23:31)
[2023-07-06] MEDS: Thiamine 100 MG TAB PO SCH (08:34)
[2023-07-06] MEDS: Senokot S 8.6-50 MG TAB PO SCH ×2 (08:34→20:55)
[2023-07-06] MEDS: pyridOXINE 50 MG (B6) TAB PO SCH (08:34)
[2023-07-06] MEDS: Polyethylene Glycol 3350 17 GM Packet PO SCH (08:34)
[2023-07-06] MEDS: hydrALAZINE 25 MG TAB PO SCH ×3 (08:34→20:18)
[2023-07-06] MEDS: Aspirin 81 mg Enteric Coated Tablet PO SCH (08:34)
[2023-07-06] MEDS: Enoxaparin 40 MG (0.4 mL) SYRINGE SC SCH (20:19)
[2023-07-06] MEDS: Atorvastatin Calcium 40 MG TAB PO SCH (20:19)
[2023-07-06] MEDS: Temazepam 15 MG CAP PO PRN (22:04)
[2023-07-07] MEDS ORDERED: Ondansetron ODT 4 MG TAB PO PRN (04:01)
[2023-07-07] MEDS: Senokot S 8.6-50 MG TAB PO SCH (09:13)
[2023-07-07] MEDS: Polyethylene Glycol 3350 17 GM Packet PO SCH (09:13)
[2023-07-07] MEDS: Thiamine 100 MG TAB PO SCH (09:14)
[2023-07-07] MEDS: pyridOXINE 50 MG (B6) TAB PO SCH (09:14)
[2023-07-07] MEDS: hydrALAZINE 25 MG TAB PO SCH ×3 (09:14→22:07)
[2023-07-07] MEDS: Aspirin 81 mg Enteric Coated Tablet PO SCH (09:14)
[2023-07-07] MEDS: Atorvastatin Calcium 40 MG TAB PO SCH (22:06)
[2023-07-07] MEDS: Enoxaparin 40 MG (0.4 mL) SYRINGE SC SCH (22:07)
[2023-07-07] MEDS: Temazepam 15 MG CAP PO PRN (22:07)
[2023-07-08] MEDS: Polyethylene Glycol 3350 17 GM Packet PO SCH (09:08)
[2023-07-08] MEDS: pyridOXINE 50 MG (B6) TAB PO SCH (09:08)
[2023-07-08] MEDS: Thiamine 100 MG TAB PO SCH (09:08)
[2023-07-08] MEDS: Aspirin 81 mg Enteric Coated Tablet PO SCH (09:08)
[2023-07-08] MEDS: hydrALAZINE 25 MG TAB PO SCH ×3 (09:08→21:54)
[2023-07-08] MEDS: Senokot S 8.6-50 MG TAB PO SCH ×2 (09:08→21:53)
[2023-07-08] MEDS: Atorvastatin Calcium 40 MG TAB PO SCH (21:52)
[2023-07-08] MEDS: Temazepam 15 MG CAP PO PRN (21:52)
[2023-07-08] MEDS: Enoxaparin 40 MG (0.4 mL) SYRINGE SC SCH (21:52)
[2023-07-09] MEDS: Senokot S 8.6-50 MG TAB PO SCH ×2 (09:00→20:40)
[2023-07-09] MEDS: hydrALAZINE 25 MG TAB PO SCH ×3 (09:00→20:40)
[2023-07-09] MEDS: Polyethylene Glycol 3350 17 GM Packet PO SCH (09:00)
[2023-07-09] MEDS: Aspirin 81 mg Enteric Coated Tablet PO SCH (09:00)
[2023-07-09] MEDS: pyridOXINE 50 MG (B6) TAB PO SCH (09:01)
[2023-07-09] MEDS: Thiamine 100 MG TAB PO SCH (09:01)
[2023-07-09] MEDS: Atorvastatin Calcium 40 MG TAB PO SCH (20:40)
[2023-07-09] MEDS: Enoxaparin 40 MG (0.4 mL) SYRINGE SC SCH (20:40)
[2023-07-10] MEDS: pyridOXINE 50 MG (B6) TAB PO SCH (08:18)
[2023-07-10] MEDS: hydrALAZINE 25 MG TAB PO SCH ×3 (08:18→21:18)
[2023-07-10] MEDS: Aspirin 81 mg Enteric Coated Tablet PO SCH (08:18)
[2023-07-10] MEDS: Thiamine 100 MG TAB PO SCH (08:19)
[2023-07-10] MEDS: Polyethylene Glycol 3350 17 GM Packet PO SCH (08:19)
[2023-07-10] MEDS: Senokot S 8.6-50 MG TAB PO SCH ×2 (08:19→21:18)
[2023-07-10] MEDS: Atorvastatin Calcium 40 MG TAB PO SCH (21:18)
[2023-07-10] MEDS: Enoxaparin 40 MG (0.4 mL) SYRINGE SC SCH (21:19)
[2023-07-11] MEDS: pyridOXINE 50 MG (B6) TAB PO SCH (08:50)
[2023-07-11] MEDS: hydrALAZINE 25 MG TAB PO SCH ×3 (08:50→20:38)
[2023-07-11] MEDS: Thiamine 100 MG TAB PO SCH (08:50)
[2023-07-11] MEDS: Polyethylene Glycol 3350 17 GM Packet PO SCH (08:51)
[2023-07-11] MEDS: Aspirin 81 mg Enteric Coated Tablet PO SCH (08:51)
[2023-07-11] MEDS: Senokot S 8.6-50 MG TAB PO SCH ×2 (08:51→20:38)
[2023-07-11 10:36] LABS: Anion Gap 14 mmol/L (10-20); BUN (Urea Nitrogen) 15 mg/dL (8.9-20.6); Calc. Creatinine Clearance 133 mL/min (70-130); Calcium 9.9 mg/dL (7.8-10.44); Carbon Dioxide 26 mmol/L (22-29); Chloride 100 mmol/L (98-107); Estimated GFR 120; Glucose 110 mg/dL (70-105); Potassium 4.3 mmol/L (3.5-5.1); Sodium 136 mmol/L (136-145)
[2023-07-11] MEDS: Enoxaparin 40 MG (0.4 mL) SYRINGE SC SCH (20:37)
[2023-07-11] MEDS: Atorvastatin Calcium 40 MG TAB PO SCH (20:38)
[2023-07-12 06:49] LABS: #Eosinphils 0.2 thou/uL (0.0-0.7); #Monocytes 0.5 thou/uL (0.11-0.59); #Neutrophils 4.3 thou/uL (1.40-6.50); %Basophils 0.3 % (0.0-1.0); %Eosinophils 2.5 % (0.0-10.0); %Lymphocytes 29.3 % (21.0-51.0); %Monocytes 6.9 % (0.0-10.0); %Neutrophils 60.4 % (42.0-75.0); Hematocrit 40.9 % (42.0-52.0); Hemoglobin 13.2 g/dL (14.0-18.0); Mean Corpuscular HGB CONC 32.3 g/dL (32.0-36.0); Mean Corpuscular Hemoglobin 27.8 pg (27.0-31.0); Mean Corpuscular Volume 86.3 fl (78.0-98.0); Mean Platelet Volume 9.9 fL (7.4-10.4); Platelet Count 317 10x3/uL (130-400); RBC Distribution Width 14.3 % (11.5-14.5); Red Blood Cell (RBC) Count 4.74 mill/uL (4.70-6.10); White Blood Cell (WBC) Count 7.1 10x3/uL (4.8-10.8)
[2023-07-12 07:15] LABS: Anion Gap 13 mmol/L (10-20); BUN (Urea Nitrogen) 14 mg/dL (8.9-20.6); Calc. Creatinine Clearance 127 mL/min (70-130); Calcium 9.8 mg/dL (7.8-10.44); Carbon Dioxide 25 mmol/L (22-29); Chloride 100 mmol/L (98-107); Estimated GFR 118; Glucose 121 mg/dL (70-105); Potassium 3.8 mmol/L (3.5-5.1); Sodium 134 mmol/L (136-145)
[2023-07-12] MEDS: pyridOXINE 50 MG (B6) TAB PO SCH (08:53)
[2023-07-12] MEDS: Thiamine 100 MG TAB PO SCH (08:53)
[2023-07-12] MEDS: hydrALAZINE 25 MG TAB PO SCH ×3 (08:53→22:15)
[2023-07-12] MEDS: Aspirin 81 mg Enteric Coated Tablet PO SCH (08:53)
[2023-07-12] MEDS: Senokot S 8.6-50 MG TAB PO SCH ×2 (08:53→22:16)
[2023-07-12] MEDS ORDERED: Sodium Chloride 0.9% 1,000 ML IV SCH (09:00)
[2023-07-12] MEDS: Polyethylene Glycol 3350 17 GM Packet PO SCH (09:13)
[2023-07-12] MEDS: Temazepam 15 MG CAP PO PRN (22:15)
[2023-07-12] MEDS: Atorvastatin Calcium 40 MG TAB PO SCH (22:16)
[2023-07-12] MEDS: Enoxaparin 40 MG (0.4 mL) SYRINGE SC SCH (22:16)
[2023-07-13 06:57] LABS: #Eosinphils 0.1 thou/uL (0.0-0.7); #Monocytes 0.7 thou/uL (0.11-0.59); %Basophils 0.3 % (0.0-1.0); %Eosinophils 1.9 % (0.0-10.0); %Lymphocytes 29.6 % (21.0-51.0); %Monocytes 9.6 % (0.0-10.0); %Neutrophils 58.2 % (42.0-75.0); Hematocrit 40.9 % (42.0-52.0); Hemoglobin 13.3 g/dL (14.0-18.0); Mean Corpuscular HGB CONC 32.5 g/dL (32.0-36.0); Mean Corpuscular Hemoglobin 27.9 pg (27.0-31.0); Mean Corpuscular Volume 85.7 fl (78.0-98.0); Mean Platelet Volume 9.7 fL (7.4-10.4); Platelet Count 306 10x3/uL (130-400); RBC Distribution Width 14.5 % (11.5-14.5); Red Blood Cell (RBC) Count 4.77 mill/uL (4.70-6.10); White Blood Cell (WBC) Count 6.9 10x3/uL (4.8-10.8)
[2023-07-13 07:22] LABS: Anion Gap 13 mmol/L (10-20); BUN (Urea Nitrogen) 19 mg/dL (8.9-20.6); Calc. Creatinine Clearance 111 mL/min (70-130); Calcium 9.3 mg/dL (7.8-10.44); Carbon Dioxide 25 mmol/L (22-29); Chloride 105 mmol/L (98-107); Estimated GFR 102; Glucose 95 mg/dL (70-105); Potassium 4.3 mmol/L (3.5-5.1); Sodium 139 mmol/L (136-145)
[2023-07-13] MEDS: Aspirin 81 mg Enteric Coated Tablet PO SCH (08:27)
[2023-07-13] MEDS: hydrALAZINE 25 MG TAB PO SCH ×3 (08:30→22:42)
[2023-07-13] MEDS: Polyethylene Glycol 3350 17 GM Packet PO SCH (08:31)
[2023-07-13] MEDS: Senokot S 8.6-50 MG TAB PO SCH ×2 (08:31→22:43)
[2023-07-13] MEDS: pyridOXINE 50 MG (B6) TAB PO SCH (08:31)
[2023-07-13] MEDS: Thiamine 100 MG TAB PO SCH (08:31)
[2023-07-13] MEDS: Enoxaparin 40 MG (0.4 mL) SYRINGE SC SCH (22:42)
[2023-07-13] MEDS: Temazepam 15 MG CAP PO PRN (22:44)
[2023-07-13] MEDS: Atorvastatin Calcium 40 MG TAB PO SCH (22:56)
[2023-07-14 06:30] LABS: #Eosinphils 0.2 thou/uL (0.0-0.7); #Monocytes 0.8 thou/uL (0.11-0.59); #Neutrophils 3.8 thou/uL (1.40-6.50); %Basophils 0.6 % (0.0-1.0); %Eosinophils 2.7 % (0.0-10.0); %Lymphocytes 31.2 % (21.0-51.0); %Monocytes 10.8 % (0.0-10.0); %Neutrophils 54.4 % (42.0-75.0); Hematocrit 41.1 % (42.0-52.0); Hemoglobin 12.9 g/dL (14.0-18.0); Mean Corpuscular HGB CONC 31.4 g/dL (32.0-36.0); Mean Platelet Volume 9.7 fL (7.4-10.4); Platelet Count 285 10x3/uL (130-400); RBC Distribution Width 14.6 % (11.5-14.5); Red Blood Cell (RBC) Count 4.61 mill/uL (4.70-6.10)
[2023-07-14 06:36] LABS: Mean Corpuscular Volume 89.2 fl (78.0-98.0)
[2023-07-14 06:55] LABS: Anion Gap 11 mmol/L (10-20); BUN (Urea Nitrogen) 17 mg/dL (8.9-20.6); Calc. Creatinine Clearance 126 mL/min (70-130); Calcium 9.3 mg/dL (7.8-10.44); Carbon Dioxide 26 mmol/L (22-29); Chloride 105 mmol/L (98-107); Estimated GFR 118; Glucose 86 mg/dL (70-105); Potassium 4.3 mmol/L (3.5-5.1); Sodium 138 mmol/L (136-145)
[2023-07-14] MEDS: pyridOXINE 50 MG (B6) TAB PO SCH (09:56)
[2023-07-14] MEDS: Thiamine 100 MG TAB PO SCH (09:56)
[2023-07-14] MEDS: Aspirin 81 mg Enteric Coated Tablet PO SCH (09:56)
[2023-07-14] MEDS: Senokot S 8.6-50 MG TAB PO SCH ×2 (09:57→22:41)
[2023-07-14] MEDS: hydrALAZINE 25 MG TAB PO SCH ×3 (09:57→22:40)
[2023-07-14] MEDS: Polyethylene Glycol 3350 17 GM Packet PO SCH (09:57)
[2023-07-14] MEDS: Enoxaparin 40 MG (0.4 mL) SYRINGE SC SCH (22:37)
[2023-07-14] MEDS: Atorvastatin Calcium 40 MG TAB PO SCH (22:38)
[2023-07-14] MEDS: Temazepam 15 MG CAP PO PRN (22:38)
[2023-07-15] MEDS: hydrALAZINE 25 MG TAB PO SCH ×3 (09:40→22:18)
[2023-07-15] MEDS: Thiamine 100 MG TAB PO SCH (09:40)
[2023-07-15] MEDS: pyridOXINE 50 MG (B6) TAB PO SCH (09:41)
[2023-07-15] MEDS: Aspirin 81 mg Enteric Coated Tablet PO SCH (09:41)
[2023-07-15] MEDS: Polyethylene Glycol 3350 17 GM Packet PO SCH (10:23)
[2023-07-15] MEDS: Senokot S 8.6-50 MG TAB PO SCH ×2 (10:26→22:19)
[2023-07-15] MEDS: Temazepam 15 MG CAP PO PRN (22:18)
[2023-07-15] MEDS: Enoxaparin 40 MG (0.4 mL) SYRINGE SC SCH (22:18)
[2023-07-15] MEDS: Atorvastatin Calcium 40 MG TAB PO SCH (22:18)
[2023-07-16] MEDS: Senokot S 8.6-50 MG TAB PO SCH ×2 (09:07→22:42)
[2023-07-16] MEDS: Polyethylene Glycol 3350 17 GM Packet PO SCH (09:07)
[2023-07-16] MEDS: Aspirin 81 mg Enteric Coated Tablet PO SCH (09:08)
[2023-07-16] MEDS: pyridOXINE 50 MG (B6) TAB PO SCH (09:08)
[2023-07-16] MEDS: hydrALAZINE 25 MG TAB PO SCH ×3 (09:08→22:41)
[2023-07-16] MEDS: Thiamine 100 MG TAB PO SCH (09:09)
[2023-07-16] MEDS: Temazepam 15 MG CAP PO PRN (22:47)
[2023-07-16] MEDS: Atorvastatin Calcium 40 MG TAB PO SCH (22:47)
[2023-07-16] MEDS: Enoxaparin 40 MG (0.4 mL) SYRINGE SC SCH (22:47)
[2023-07-17] MEDS: pyridOXINE 50 MG (B6) TAB PO SCH (09:15)
[2023-07-17] MEDS: Aspirin 81 mg Enteric Coated Tablet PO SCH (09:15)
[2023-07-17] MEDS: Thiamine 100 MG TAB PO SCH (09:15)
[2023-07-17] MEDS: Polyethylene Glycol 3350 17 GM Packet PO SCH (09:16)
[2023-07-17] MEDS: Senokot S 8.6-50 MG TAB PO SCH ×2 (09:16→22:38)
[2023-07-17] MEDS: hydrALAZINE 25 MG TAB PO SCH ×3 (09:29→22:37)
[2023-07-17] MEDS: Enoxaparin 40 MG (0.4 mL) SYRINGE SC SCH (22:37)
[2023-07-17] MEDS: Atorvastatin Calcium 40 MG TAB PO SCH (22:37)
[2023-07-17] MEDS: Temazepam 15 MG CAP PO PRN (22:37)
[2023-07-18] MEDS: pyridOXINE 50 MG (B6) TAB PO SCH (08:09)
[2023-07-18] MEDS: Aspirin 81 mg Enteric Coated Tablet PO SCH (08:09)
[2023-07-18] MEDS: Thiamine 100 MG TAB PO SCH (08:09)
[2023-07-18] MEDS: hydrALAZINE 25 MG TAB PO SCH ×3 (08:09→22:29)
[2023-07-18] MEDS: Senokot S 8.6-50 MG TAB PO SCH ×2 (08:10→22:28)
[2023-07-18] MEDS: Polyethylene Glycol 3350 17 GM Packet PO SCH (08:10)
[2023-07-18] MEDS: Temazepam 15 MG CAP PO PRN (22:29)
[2023-07-18] MEDS: Enoxaparin 40 MG (0.4 mL) SYRINGE SC SCH (22:29)
[2023-07-18] MEDS: Atorvastatin Calcium 40 MG TAB PO SCH (22:36)
[2023-07-19] MEDS: Aspirin 81 mg Enteric Coated Tablet PO SCH (08:21)
[2023-07-19] MEDS: Thiamine 100 MG TAB PO SCH (08:21)
[2023-07-19] MEDS: hydrALAZINE 25 MG TAB PO SCH ×3 (08:21→21:44)
[2023-07-19] MEDS: pyridOXINE 50 MG (B6) TAB PO SCH (08:22)
[2023-07-19] MEDS: Senokot S 8.6-50 MG TAB PO SCH ×2 (08:23→22:06)
[2023-07-19] MEDS: Polyethylene Glycol 3350 17 GM Packet PO SCH (08:23)
[2023-07-19] MEDS ORDERED: Acetaminophen 325 MG TAB PO PRN (08:30)
[2023-07-19] MEDS: Atorvastatin Calcium 40 MG TAB PO SCH (21:44)
[2023-07-19] MEDS: Enoxaparin 40 MG (0.4 mL) SYRINGE SC SCH (22:05)
[2023-07-19] MEDS: Temazepam 15 MG CAP PO PRN (22:09)
[2023-07-20] MEDS: hydrALAZINE 25 MG TAB PO SCH ×2 (09:42→16:02)
[2023-07-20] MEDS: Polyethylene Glycol 3350 17 GM Packet PO SCH (09:43)
[2023-07-20] MEDS: Senokot S 8.6-50 MG TAB PO SCH ×2 (09:43→21:54)
[2023-07-20] MEDS: Aspirin 81 mg Enteric Coated Tablet PO SCH (09:43)
[2023-07-20] MEDS: pyridOXINE 50 MG (B6) TAB PO SCH (09:43)
[2023-07-20] MEDS: Thiamine 100 MG TAB PO SCH (09:43)
[2023-07-20] MEDS: Temazepam 15 MG CAP PO PRN (21:55)
[2023-07-20] MEDS: Atorvastatin Calcium 40 MG TAB PO SCH (21:55)
[2023-07-20] MEDS: Enoxaparin 40 MG (0.4 mL) SYRINGE SC SCH (21:55)
[2023-07-21] MEDS: hydrALAZINE 25 MG TAB PO SCH ×4 (03:25→20:01)
[2023-07-21] MEDS: Aspirin 81 mg Enteric Coated Tablet PO SCH (09:28)
[2023-07-21] MEDS: Thiamine 100 MG TAB PO SCH (09:28)
[2023-07-21] MEDS: Senokot S 8.6-50 MG TAB PO SCH ×2 (09:29→20:01)
[2023-07-21] MEDS: Polyethylene Glycol 3350 17 GM Packet PO SCH (09:29)
[2023-07-21] MEDS: pyridOXINE 50 MG (B6) TAB PO SCH (09:29)
[2023-07-21] MEDS: Atorvastatin Calcium 40 MG TAB PO SCH (20:01)
[2023-07-21] MEDS: Enoxaparin 40 MG (0.4 mL) SYRINGE SC SCH (20:01)
[2023-07-21] MEDS: Temazepam 15 MG CAP PO PRN (21:55)
[2023-07-22] MEDS: hydrALAZINE 25 MG TAB PO SCH ×3 (10:20→19:54)
[2023-07-22] MEDS: Polyethylene Glycol 3350 17 GM Packet PO SCH (10:20)
[2023-07-22] MEDS: Senokot S 8.6-50 MG TAB PO SCH ×2 (10:20→19:54)
[2023-07-22] MEDS: Aspirin 81 mg Enteric Coated Tablet PO SCH (10:20)
[2023-07-22] MEDS: pyridOXINE 50 MG (B6) TAB PO SCH (10:20)
[2023-07-22] MEDS: Thiamine 100 MG TAB PO SCH (10:21)
[2023-07-22] MEDS: Enoxaparin 40 MG (0.4 mL) SYRINGE SC SCH (19:54)
[2023-07-22] MEDS: Atorvastatin Calcium 40 MG TAB PO SCH (19:54)
[2023-07-22] MEDS: Temazepam 15 MG CAP PO PRN (21:50)
[2023-07-23] MEDS: hydrALAZINE 25 MG TAB PO SCH ×2 (08:48→16:17)
[2023-07-23] MEDS: Senokot S 8.6-50 MG TAB PO SCH (08:48)
[2023-07-23] MEDS: Thiamine 100 MG TAB PO SCH (08:49)
[2023-07-23] MEDS: pyridOXINE 50 MG (B6) TAB PO SCH (08:49)
[2023-07-23] MEDS: Polyethylene Glycol 3350 17 GM Packet PO SCH (08:49)
[2023-07-23] MEDS: Aspirin 81 mg Enteric Coated Tablet PO SCH (08:49)
[2023-07-23 16:29] VITALS: BP 119/71; TEMP 98.3
== END 2023-07-23 18:20 | DRG 64 ==
LOC: EEVIPCON 07:07 → ERS 07:07 → CCU 08:48 → SURG A 06-03 18:03
PROVIDERS: ADMIT Internal Medicine; ATTEND Student in an Organized Health Care Education/Training Program
PROC: 4A133R1 Monitoring of Arterial Saturation, Peripheral, Percutaneous Approach (ICD-10-PCS; 2023-05-29)
PROC: 3E033XZ Introduction of Vasopressor into Peripheral Vein, Percutaneous Approach (ICD-10-PCS; 2023-05-29)
PROC: 0BH17EZ Insertion of Endotracheal Airway into Trachea, Via Natural or Artificial Opening (ICD-10-PCS; 2023-05-29)
PROC: 5A1945Z Respiratory Ventilation, 24-96 Consecutive Hours (ICD-10-PCS; 2023-05-29)
PROC: 4A00X4Z Measurement of Central Nervous Electrical Activity, External Approach (ICD-10-PCS; principal; 2023-05-30)
PROC: 4A00X4Z Measurement of Central Nervous Electrical Activity, External Approach (ICD-10-PCS; 2023-06-07)
DX: I63.9 Cerebral infarction, unspecified (principal); A41.9 Sepsis, unspecified organism; G92.8 Other toxic encephalopathy; R65.21 Severe sepsis with septic shock; R57.0 Cardiogenic shock; J69.0 Pneumonitis due to inhalation of food and vomit; J18.9 Pneumonia, unspecified organism; K72.00 Acute and subacute hepatic failure without coma; J80 Acute respiratory distress syndrome; G93.1 Anoxic brain damage, not elsewhere classified; N17.9 Acute kidney failure, unspecified; E87.20 Acidosis, unspecified; M62.82 Rhabdomyolysis; I42.9 Cardiomyopathy, unspecified; E87.1 Hypo-osmolality and hyponatremia; G81.91 Hemiplegia, unspecified affecting right dominant side; T42.4X1A Poisoning by benzodiazepines, accidental (unintentional), initial encounter; D63.8 Anemia in other chronic diseases classified elsewhere; F19.10 Other psychoactive substance abuse, uncomplicated; E78.5 Hyperlipidemia, unspecified; R53.81 Other malaise; A74.89 Other chlamydial diseases; R47.02 Dysphasia
CPT/HCPCS: 36415; 36416; 36556; 36600; 51702; 70450; 70551; 71045; 71260; 72125; 74177; 80048; 80053; 80061; 80074; 80076; 80202; 80306; 80307; 81001; 82550; 82805; 83036; 83090; 83605; 84443; 85025; 85027; 85300; 85303; 85305; 85307; 85379; 85598; 85610; 85730; 86147; 86780; 87070; 87205; 87389; 87491; 87591; 93005; 93306; 93880; 94002; 94003; 94640; 95711; 95816; 95819; 96365; 96366; 96367; 96368; 96375; 99292; C9113; J0171; J0360; J0613; J1250; J1650; J1815; J1940; J1953; J1956; J2060; J2272; J2543; J2704; J2920; J2930; J3010; J3370; J3475; J3490; J7050; J7070; J7626; Q0162; Q9967